=== PATIENT | female | born 1955 | race Caucasian/White ===

== ENCOUNTER → 2017-06-20 09:48 | Outpatient (CLI) | payer OTHER, SELFPAY ==
[2017-06-20 11:54] LABS: Alanine Aminotransferase 47 U/L (12-78); Albumin Level 3.8 gm/dL (3.4-5.0); Albumin/Globulin Ratio 1.2 (1.1-1.8); Alkaline Phosphatase 73 U/L (46-116); Anion Gap 11.4 mEq/L (5-15); Aspartate Amino Transferase 25 U/L (15-37); Bilirubin,Total 0.4 mg/dL (0.2-1.0); Blood Urea Nitrogen 26 mg/dL (7-18); Calcium 9.2 mg/dL (8.5-10.1); Carbon Dioxide 29 mmol/L (21.0-32.0); Chloride 107 mmol/L (98-107); Creatinine,Serum 0.59 mg/dL (0.55-1.02); Estimated Glomerular Filt Rate 104 ml/min (>60); GFR (African American) 126 ML/MIN (>60); Globulin 3.3 gm/dl (1.3-3.2); Glucose 85 mg/dL (74-106); Potassium 4.4 mmoL/L (3.5-5.1); Sodium 143 mmol/L (136-145); Total Protein,Serum 7.1 gm/dL (6.4-8.2)
[2017-06-20 12:23] LABS: Basophils % 0.9 % (0.1-2.0); Eosinophils # 0.2 K/mm3 (0.0-0.4); Eosinophils % 4.2 % (0.1-12.0); Hematocrit 40.9 % (37.0-47.0); Hemoglobin 13.5 g/dL (12.2-16.2); Lymphocytes # 1.9 K/mm3 (0.7-4.5); Lymphocytes % 38.6 K/mm3 (10-50); Mean Corpuscular HGB Conc 33.1 g/dL (31.8-35.4); Mean Corpuscular Hemoglobin 30.6 pg (27.0-31.2); Mean Corpuscular Volume 92.4 fl (81-99); Mean Platelet Volume 9.6 fl (7.4-10.4); Monocytes # 0.4 K/mm3 (0.1-1.0); Monocytes % 8.1 % (1.7-9.3); Neutrophils # 2.3 K/mm3 (1.8-7.8); Neutrophils % 48.2 % (37.0-80.0); Platelet Count 196 K/mm3 (142-424); Red Blood Count 4.42 M/mm3 (4.20-5.40); Red Cell Distribution Width 13.9 % (11.5-17.5); White Blood Count 4.8 K/mm3 (4.8-10.8)
== END ==
PROVIDERS: PCP Internal Medicine Adolescent Medicine; Visit Provider Nurse Practitioner Acute Care
DX: K76.9 Liver disease, unspecified (principal); D89.9 Disorder involving the immune mechanism, unspecified; L40.50 Arthropathic psoriasis, unspecified; Z51.81 Encounter for therapeutic drug level monitoring; Z79.1 Long term (current) use of non-steroidal anti-inflammatories (NSAID)
CPT/HCPCS: 36415; 80053; 85025

== ENCOUNTER → 2017-07-05 08:49 | Outpatient (CLI) | payer OTHER, SELFPAY | PROVIDERS: Family Provider Internal Medicine Adolescent Medicine; PCP Internal Medicine Adolescent Medicine; Visit Provider Nurse Practitioner Acute Care | DX: D89.9 Disorder involving the immune mechanism, unspecified (principal); L40.50 Arthropathic psoriasis, unspecified; Z51.81 Encounter for therapeutic drug level monitoring; Z79.1 Long term (current) use of non-steroidal anti-inflammatories (NSAID) ==

== ENCOUNTER → 2017-07-06 07:13 | Outpatient (CLI) | payer OTHER, SELFPAY ==
--- NOTE | 2017-07-06 07:15 | MR_ITS ---
MR abdomen wo/w con CLINICAL INDICATION: ITS.REASON: LIVER LESION, HEPATIC DISEASE ORDERING PHYSICIAN: Vika Warner PATIENT AGE: 61 years COMPARISON: 12/19/2016 TECHNIQUE: Multiplanar multiecho pre and post enhanced images obtained per abdominal protocol similar to the previous exam FINDINGS: There remains a thin linear area of enhancement at the junction of the anterior and posterior segment of the right hepatic lobe. The area of enhancement is somewhat less apparent when compared to the previous exam. As mentioned previously, this may represent transient hepatic intensity difference possibly from previous branches of the portal vein thrombosis resulting in increased hepatic arterial flow. No suspicious space-occupying lesions are evident of the liver. There is a moderate amount of colonic feces. Spleen, kidneys, adrenal glands, and pancreas have an unremarkable appearance. IMPRESSION: 1. Persistent linear enhancement at the junction of the right left hepatic lobe for a slightly less apparent consistent with transient hepatic intensity difference possibly from previous occlusion of the branch of the portal vein 2. Otherwise negative MRI of the abdomen
== END ==
PROVIDERS: Family Provider Internal Medicine Adolescent Medicine; PCP Internal Medicine Adolescent Medicine; Visit Provider Nurse Practitioner Acute Care
DX: K76.9 Liver disease, unspecified (principal)
CPT/HCPCS: 74183; A9576

== ENCOUNTER → 2017-07-12 15:52 | Outpatient (CLI) | payer OTHER, SELFPAY ==
[2017-07-12 16:16] LABS: INR 0.97 (0.9-1.1); Prothrombin Time 10.5 seconds (9.4-11.8)
[2017-07-12 16:22] LABS: Alanine Aminotransferase 42 U/L (12-78); Albumin Level 4.1 gm/dL (3.4-5.0); Albumin/Globulin Ratio 1.2 (1.1-1.8); Alkaline Phosphatase 70 U/L (46-116); Anion Gap 8.9 mEq/L (5-15); Aspartate Amino Transferase 22 U/L (15-37); Bilirubin,Total 0.5 mg/dL (0.2-1.0); Blood Urea Nitrogen 27 mg/dL (7-18); Calcium 9.3 mg/dL (8.5-10.1); Carbon Dioxide 31 mmol/L (21.0-32.0); Chloride 103 mmol/L (98-107); Creatinine,Serum 0.73 mg/dL (0.55-1.02); Estimated Glomerular Filt Rate 81 ml/min (>60); GFR (African American) 98 ML/MIN (>60); Globulin 3.3 gm/dl (1.3-3.2); Glucose 83 mg/dL (74-106); Potassium 3.9 mmoL/L (3.5-5.1); Sodium 139 mmol/L (136-145); Total Protein,Serum 7.4 gm/dL (6.4-8.2)
[2017-07-12 18:08] LABS: Basophils % 0.6 % (0.1-2.0); Eosinophils # 0.3 K/mm3 (0.0-0.4); Eosinophils % 4.4 % (0.1-12.0); Hematocrit 43.2 % (37.0-47.0); Hemoglobin 13.9 g/dL (12.2-16.2); Lymphocytes # 2.2 K/mm3 (0.7-4.5); Lymphocytes % 39.6 K/mm3 (10-50); Mean Corpuscular HGB Conc 32.2 g/dL (31.8-35.4); Mean Corpuscular Hemoglobin 30.9 pg (27.0-31.2); Mean Corpuscular Volume 95.9 fl (81-99); Mean Platelet Volume 9.4 fl (7.4-10.4); Monocytes # 0.3 K/mm3 (0.1-1.0); Neutrophils # 2.8 K/mm3 (1.8-7.8); Neutrophils % 49.4 % (37.0-80.0); Platelet Count 212 K/mm3 (142-424); Red Cell Distribution Width 13.4 % (11.5-17.5); White Blood Count 5.6 K/mm3 (4.8-10.8)
== END ==
PROVIDERS: Visit Provider Nurse Practitioner Family
DX: K76.9 Liver disease, unspecified (principal)
CPT/HCPCS: 36415; 80053; 85025; 85610

== ENCOUNTER → 2017-08-06 07:54 | Outpatient (CLI) | payer OTHER, SELFPAY ==
[2017-08-06 08:52] LABS: Basophils % 0.7 % (0.1-2.0); Eosinophils # 0.2 K/mm3 (0.0-0.4); Eosinophils % 4.6 % (0.1-12.0); Hematocrit 42.5 % (37.0-47.0); Hemoglobin 13.8 g/dL (12.2-16.2); Lymphocytes # 1.8 K/mm3 (0.7-4.5); Lymphocytes % 46.4 K/mm3 (10-50); Mean Corpuscular HGB Conc 32.6 g/dL (31.8-35.4); Mean Corpuscular Hemoglobin 31.6 pg (27.0-31.2); Mean Corpuscular Volume 97.2 fl (81-99); Mean Platelet Volume 8.8 fl (7.4-10.4); Monocytes # 0.3 K/mm3 (0.1-1.0); Monocytes % 6.6 % (1.7-9.3); Neutrophils # 1.6 K/mm3 (1.8-7.8); Neutrophils % 41.7 % (37.0-80.0); Platelet Count 215 K/mm3 (142-424); Red Blood Count 4.38 M/mm3 (4.20-5.40); Red Cell Distribution Width 13.2 % (11.5-17.5); White Blood Count 3.9 K/mm3 (4.8-10.8)
[2017-08-06 08:56] LABS: Alanine Aminotransferase 35 U/L (12-78); Albumin Level 3.9 gm/dL (3.4-5.0); Albumin/Globulin Ratio 1.1 (1.1-1.8); Alkaline Phosphatase 71 U/L (46-116); Anion Gap 10.4 mEq/L (5-15); Aspartate Amino Transferase 23 U/L (15-37); Bilirubin,Total 0.5 mg/dL (0.2-1.0); Blood Urea Nitrogen 32 mg/dL (7-18); Calcium 9.1 mg/dL (8.5-10.1); Carbon Dioxide 30 mmol/L (21.0-32.0); Chloride 105 mmol/L (98-107); Creatinine,Serum 0.61 mg/dL (0.55-1.02); Estimated Glomerular Filt Rate 100 ml/min (>60); GFR (African American) 121 ML/MIN (>60); Globulin 3.4 gm/dl (1.3-3.2); Glucose 88 mg/dL (74-106); Potassium 4.4 mmoL/L (3.5-5.1); Sodium 141 mmol/L (136-145); Total Protein,Serum 7.3 gm/dL (6.4-8.2)
[2017-08-06 08:58] LABS: C-Reactive Protein < 0.2 mg/L (0.0-0.9)
[2017-08-06 10:01] LABS: Erythrocyte Sedimentation Rate 11 mm/hr (0-30)
[2017-08-07 08:24] LABS: Hep A Ab, IgM Negative (Negative); Hepatitis B Core Antibody IgM Negative (Negative); Hepatitis B Surface Antigen Negative (Negative)
[2017-08-07 15:40] LABS: Hepatitis C Antibody <0.1 s/co ratio (0.0-0.9)
== END ==
PROVIDERS: Visit Provider Internal Medicine
DX: D89.9 Disorder involving the immune mechanism, unspecified (principal); L40.50 Arthropathic psoriasis, unspecified; R53.83 Other fatigue; Z79.1 Long term (current) use of non-steroidal anti-inflammatories (NSAID); Z51.81 Encounter for therapeutic drug level monitoring
CPT/HCPCS: 36415; 80053; 80074; 85025; 85651; 86140; 86480

== ENCOUNTER 2017-09-20 08:30 | Outpatient (CLI) | payer OTHER, SELFPAY ==
[2017-09-20 09:04] VITALS: BMI 29.7
[2017-09-20 09:23] LABS: Basophils # 0.1 K/mm3 (0-0.2); Basophils % 0.9 % (0.1-2.0); Eosinophils # 0.3 K/mm3 (0.0-0.4); Eosinophils % 6.2 % (0.1-12.0); Hematocrit 40.7 % (37.0-47.0); Hemoglobin 13.7 g/dL (12.2-16.2); Mean Corpuscular HGB Conc 33.7 g/dL (31.8-35.4); Mean Corpuscular Hemoglobin 32.6 pg (27.0-31.2); Mean Corpuscular Volume 96.9 fl (81-99); Mean Platelet Volume 8.2 fl (7.4-10.4); Monocytes # 0.4 K/mm3 (0.1-1.0); Monocytes % 6.8 % (1.7-9.3); Neutrophils # 2.5 K/mm3 (1.8-7.8); Neutrophils % 48.2 % (37.0-80.0); Platelet Count 227 K/mm3 (142-424); Red Cell Distribution Width 13.1 % (11.5-17.5); White Blood Count 5.2 K/mm3 (4.8-10.8)
[2017-09-20 10:45] VITALS: BP 131/86; PULSE 61; RESP 18; TEMP 36.2; O2SAT 99
[2017-09-20 11:00] VITALS: BP 143/91; PULSE 60; RESP 18
[2017-09-20 11:15] VITALS: BP 129/92; PULSE 63; RESP 18
[2017-09-20 11:30] VITALS: BP 149/88; PULSE 61; RESP 18
[2017-09-20 11:35] VITALS: BP 149/88; PULSE 61; RESP 18
== END 2017-09-20 11:35 | disposition home or self-care (01) ==
LOC: INF 08:46
PROVIDERS: Family Provider Internal Medicine Adolescent Medicine; PCP Internal Medicine Adolescent Medicine; Visit Provider Internal Medicine
DX: L40.50 Arthropathic psoriasis, unspecified (principal); D89.9 Disorder involving the immune mechanism, unspecified; Z79.01 Long term (current) use of anticoagulants; Z51.81 Encounter for therapeutic drug level monitoring
CPT/HCPCS: 85025; 86580; 96413; J1602

== ENCOUNTER 2017-10-18 08:35 | Outpatient (CLI) | payer OTHER, SELFPAY ==
[2017-10-18 08:52] VITALS: BMI 29.4
[2017-10-18 09:26] LABS: Eosinophils # 0.3 K/mm3 (0.0-0.4); Eosinophils % 7.5 % (0.1-12.0); Hematocrit 41.1 % (37.0-47.0); Hemoglobin 13.1 g/dL (12.2-16.2); Lymphocytes # 1.8 K/mm3 (0.7-4.5); Lymphocytes % 40.3 K/mm3 (10-50); Mean Corpuscular HGB Conc 31.9 g/dL (31.8-35.4); Mean Corpuscular Hemoglobin 31.5 pg (27.0-31.2); Mean Corpuscular Volume 98.8 fl (81-99); Monocytes # 0.3 K/mm3 (0.1-1.0); Monocytes % 6.1 % (1.7-9.3); Neutrophils % 45.1 % (37.0-80.0); Platelet Count 216 K/mm3 (142-424); Red Blood Count 4.16 M/mm3 (4.20-5.40); Red Cell Distribution Width 13.1 % (11.5-17.5); White Blood Count 4.4 K/mm3 (4.8-10.8)
[2017-10-18 10:23] VITALS: BP 149/76; PULSE 63; RESP 18; TEMP 36.5; O2SAT 97
[2017-10-18 10:53] VITALS: BP 144/77; PULSE 68; RESP 18; O2SAT 96
[2017-10-18 11:05] VITALS: BP 141/71; PULSE 67; RESP 18; O2SAT 97
== END 2017-10-18 11:10 | disposition home or self-care (01) ==
LOC: INF 08:46
PROVIDERS: Family Provider Internal Medicine Adolescent Medicine; PCP Internal Medicine Adolescent Medicine; Visit Provider Internal Medicine
DX: D89.9 Disorder involving the immune mechanism, unspecified (principal); L40.50 Arthropathic psoriasis, unspecified; Z51.81 Encounter for therapeutic drug level monitoring; Z79.1 Long term (current) use of non-steroidal anti-inflammatories (NSAID)
CPT/HCPCS: 85025; 96413; J1602

== ENCOUNTER 2017-12-13 09:08 | Outpatient (CLI) | payer OTHER, SELFPAY ==
[2017-12-13 09:05] VITALS: BMI 29.4
[2017-12-13 09:33] LABS: Basophils % 0.7 % (0.1-2.0); Eosinophils # 0.2 K/mm3 (0.0-0.4); Eosinophils % 5.1 % (0.1-12.0); Hematocrit 39.5 % (37.0-47.0); Hemoglobin 12.9 g/dL (12.2-16.2); Lymphocytes # 1.7 K/mm3 (0.7-4.5); Lymphocytes % 35.1 K/mm3 (10-50); Mean Corpuscular HGB Conc 32.6 g/dL (31.8-35.4); Mean Corpuscular Hemoglobin 31.8 pg (27.0-31.2); Mean Corpuscular Volume 97.5 fl (81-99); Mean Platelet Volume 7.7 fl (7.4-10.4); Monocytes # 0.3 K/mm3 (0.1-1.0); Monocytes % 6.9 % (1.7-9.3); Neutrophils # 2.5 K/mm3 (1.8-7.8); Neutrophils % 52.3 % (37.0-80.0); Platelet Count 198 K/mm3 (142-424); Red Blood Count 4.05 M/mm3 (4.20-5.40); Red Cell Distribution Width 13.1 % (11.5-17.5); White Blood Count 4.8 K/mm3 (4.8-10.8)
[2017-12-13 10:00] VITALS: BP 131/69; PULSE 71; RESP 18; TEMP 36.6; O2SAT 98
[2017-12-13 10:30] VITALS: BP 140/70; PULSE 78; RESP 18; O2SAT 97
[2017-12-13 10:45] VITALS: BP 145/72; PULSE 76; RESP 18; O2SAT 97
== END 2017-12-13 10:50 | disposition home or self-care (01) ==
LOC: INF 09:08
PROVIDERS: Family Provider Internal Medicine Adolescent Medicine; PCP Internal Medicine Adolescent Medicine; Visit Provider Internal Medicine
DX: D89.9 Disorder involving the immune mechanism, unspecified (principal); L40.50 Arthropathic psoriasis, unspecified; Z79.1 Long term (current) use of non-steroidal anti-inflammatories (NSAID); Z51.81 Encounter for therapeutic drug level monitoring
CPT/HCPCS: 85025; 96413; J1602

== ENCOUNTER → 2018-02-05 08:36 | Outpatient (CLI) | payer OTHER, SELFPAY ==
[2018-02-05 09:22] LABS: Basophils % 0.7 % (0.1-2.0); Eosinophils # 0.2 K/mm3 (0.0-0.4); Eosinophils % 3.9 % (0.1-12.0); Hematocrit 41.2 % (37.0-47.0); Hemoglobin 13.3 g/dL (12.2-16.2); Lymphocytes # 1.9 K/mm3 (0.7-4.5); Lymphocytes % 41.4 K/mm3 (10-50); Mean Corpuscular HGB Conc 32.2 g/dL (31.8-35.4); Mean Corpuscular Hemoglobin 31.5 pg (27.0-31.2); Mean Corpuscular Volume 97.8 fl (81-99); Mean Platelet Volume 7.4 fl (7.4-10.4); Monocytes # 0.3 K/mm3 (0.1-1.0); Monocytes % 7.3 % (1.7-9.3); Neutrophils # 2.2 K/mm3 (1.8-7.8); Neutrophils % 46.7 % (37.0-80.0); Platelet Count 218 K/mm3 (142-424); Red Blood Count 4.22 M/mm3 (4.20-5.40); Red Cell Distribution Width 13.2 % (11.5-17.5); White Blood Count 4.7 K/mm3 (4.8-10.8)
[2018-02-05 10:18] LABS: Alanine Aminotransferase 31 U/L (12-78); Albumin Level 3.7 gm/dL (3.4-5.0); Albumin/Globulin Ratio 1.3 (1.1-1.8); Alkaline Phosphatase 78 U/L (46-116); Anion Gap 10.3 mEq/L (5-15); Aspartate Amino Transferase 16 U/L (15-37); Bilirubin,Total 0.4 mg/dL (0.2-1.0); Blood Urea Nitrogen 25 mg/dL (7-18); Calcium 8.9 mg/dL (8.5-10.1); Carbon Dioxide 31 mmol/L (21.0-32.0); Chloride 107 mmol/L (98-107); Creatinine,Serum 0.59 mg/dL (0.55-1.02); Estimated Glomerular Filt Rate 104 ml/min (>60); GFR (African American) 125 ML/MIN (>60); Globulin 2.9 gm/dl (1.3-3.2); Glucose 78 mg/dL (74-106); Potassium 4.3 mmoL/L (3.5-5.1); Sodium 144 mmol/L (136-145); Total Protein,Serum 6.6 gm/dL (6.4-8.2)
[2018-02-05 10:26] LABS: C-Reactive Protein < 0.2 mg/L (0.0-0.9)
[2018-02-05 11:17] LABS: Erythrocyte Sedimentation Rate 9 mm/hr (0-30)
== END ==
PROVIDERS: PCP Internal Medicine Adolescent Medicine; Visit Provider Internal Medicine
DX: Z51.81 Encounter for therapeutic drug level monitoring (principal); Z79.1 Long term (current) use of non-steroidal anti-inflammatories (NSAID); D89.9 Disorder involving the immune mechanism, unspecified; L40.50 Arthropathic psoriasis, unspecified
CPT/HCPCS: 36415; 80053; 85025; 85651; 86140

== ENCOUNTER 2018-02-07 09:14 | Outpatient (CLI) | payer OTHER, SELFPAY ==
[2018-02-07 09:26] VITALS: BMI 29.4
[2018-02-07 09:54] LABS: Basophils % 0.7 % (0.1-2.0); Eosinophils # 0.2 K/mm3 (0.0-0.4); Eosinophils % 5.3 % (0.1-12.0); Hemoglobin 12.9 g/dL (12.2-16.2); Lymphocytes % 43.6 K/mm3 (10-50); Mean Corpuscular HGB Conc 32.3 g/dL (31.8-35.4); Mean Corpuscular Hemoglobin 31.5 pg (27.0-31.2); Mean Corpuscular Volume 97.2 fl (81-99); Mean Platelet Volume 7.2 fl (7.4-10.4); Monocytes # 0.4 K/mm3 (0.1-1.0); Monocytes % 8.3 % (1.7-9.3); Neutrophils # 1.9 K/mm3 (1.8-7.8); Neutrophils % 42.2 % (37.0-80.0); Platelet Count 228 K/mm3 (142-424); Red Blood Count 4.12 M/mm3 (4.20-5.40); Red Cell Distribution Width 13.2 % (11.5-17.5); White Blood Count 4.6 K/mm3 (4.8-10.8)
[2018-02-07 10:15] VITALS: BP 159/91; PULSE 78; RESP 18; TEMP 36.6; O2SAT 98
[2018-02-07 10:40] VITALS: BP 132/80; PULSE 64; RESP 18; TEMP 36.6; O2SAT 98
[2018-02-07 11:30] VITALS: BP 139/76; PULSE 60; RESP 18; TEMP 36.7; O2SAT 97
== END 2018-02-07 11:30 | disposition home or self-care (01) ==
LOC: INF 09:14
PROVIDERS: Family Provider Internal Medicine Adolescent Medicine; PCP Internal Medicine Adolescent Medicine; Visit Provider Internal Medicine
DX: D89.9 Disorder involving the immune mechanism, unspecified (principal); L40.50 Arthropathic psoriasis, unspecified; Z51.81 Encounter for therapeutic drug level monitoring; Z79.1 Long term (current) use of non-steroidal anti-inflammatories (NSAID)
CPT/HCPCS: 85025; 96365; J1602

== ENCOUNTER 2018-04-02 09:06 | Outpatient (CLI) | payer OTHER, SELFPAY ==
[2018-04-02 09:06] VITALS: BMI 29.4
[2018-04-02 09:34] LABS: Eosinophils # 0.2 K/mm3 (0.0-0.4); Eosinophils % 3.6 % (0.1-12.0); Hematocrit 40.5 % (37.0-47.0); Hemoglobin 13.1 g/dL (12.2-16.2); Lymphocytes # 1.8 K/mm3 (0.7-4.5); Lymphocytes % 41.5 % (10-50); Mean Corpuscular HGB Conc 32.5 g/dL (31.8-35.4); Mean Corpuscular Hemoglobin 31.6 pg (27.0-31.2); Mean Corpuscular Volume 97.2 fl (81-99); Mean Platelet Volume 7.3 fl (7.4-10.4); Monocytes # 0.4 K/mm3 (0.1-1.0); Monocytes % 8.5 % (1.7-9.3); Neutrophils # 1.9 K/mm3 (1.8-7.8); Neutrophils % 45.3 % (37.0-80.0); Platelet Count 219 K/mm3 (142-424); Red Blood Count 4.16 M/mm3 (4.20-5.40); Red Cell Distribution Width 13.5 % (11.5-17.5); White Blood Count 4.2 K/mm3 (4.8-10.8)
[2018-04-02 10:05] VITALS: BP 148/92; PULSE 61; RESP 20; TEMP 36.9; O2SAT 96
[2018-04-02 10:35] VITALS: BP 168/82; PULSE 68; RESP 20; TEMP 36.9; O2SAT 95
[2018-04-02 11:00] VITALS: BP 162/84; PULSE 62; RESP 20; TEMP 37.1; O2SAT 95
== END 2018-04-02 11:00 | disposition home or self-care (01) ==
LOC: INF 09:06
PROVIDERS: Visit Provider Internal Medicine
DX: L40.50 Arthropathic psoriasis, unspecified (principal); D89.9 Disorder involving the immune mechanism, unspecified; Z51.81 Encounter for therapeutic drug level monitoring; Z79.1 Long term (current) use of non-steroidal anti-inflammatories (NSAID)
CPT/HCPCS: 85025; 96413; J1602

== ENCOUNTER 2018-05-28 08:35 | Outpatient (CLI) | payer OTHER, SELFPAY ==
[2018-05-28 08:52] VITALS: BMI 33.6
[2018-05-28 09:01] LABS: Basophils # 0.1 K/mm3 (0-0.2); Eosinophils # 0.2 K/mm3 (0.0-0.4); Eosinophils % 3.9 % (0.1-12.0); Hematocrit 40.3 % (37.0-47.0); Hemoglobin 13.1 g/dL (12.2-16.2); Lymphocytes # 2.1 K/mm3 (0.7-4.5); Lymphocytes % 41.7 % (10-50); Mean Corpuscular HGB Conc 32.5 g/dL (31.8-35.4); Mean Corpuscular Hemoglobin 31.6 pg (27.0-31.2); Mean Corpuscular Volume 97.2 fl (81-99); Mean Platelet Volume 7.5 fl (7.4-10.4); Monocytes # 0.3 K/mm3 (0.1-1.0); Monocytes % 6.6 % (1.7-9.3); Neutrophils # 2.3 K/mm3 (1.8-7.8); Neutrophils % 46.9 % (37.0-80.0); Platelet Count 253 K/mm3 (142-424); Red Blood Count 4.15 M/mm3 (4.20-5.40); Red Cell Distribution Width 13.8 % (11.5-17.5)
[2018-05-28 09:31] VITALS: BP 158/82; PULSE 68; RESP 18; TEMP 36.4; O2SAT 95
[2018-05-28 10:01] VITALS: BP 155/81; PULSE 67; RESP 18; O2SAT 96
[2018-05-28 10:20] VITALS: BP 148/79; PULSE 69; RESP 18; O2SAT 97
== END 2018-05-28 10:30 | disposition home or self-care (01) ==
LOC: INF 08:35
PROVIDERS: Visit Provider Internal Medicine
DX: D89.9 Disorder involving the immune mechanism, unspecified (principal); L40.50 Arthropathic psoriasis, unspecified; Z51.81 Encounter for therapeutic drug level monitoring; Z79.1 Long term (current) use of non-steroidal anti-inflammatories (NSAID)
CPT/HCPCS: 85025; 96413; J1602

== ENCOUNTER → 2018-06-10 22:44 | Outpatient (CLI) | payer OTHER, SELFPAY ==
[2018-06-10 23:11] LABS: Basophils % 0.6 % (0.1-2.0); Eosinophils # 0.2 K/mm3 (0.0-0.4); Eosinophils % 3.9 % (0.1-12.0); Hematocrit 40.8 % (37.0-47.0); Hemoglobin 13.2 g/dL (12.2-16.2); Lymphocytes # 2.5 K/mm3 (0.7-4.5); Lymphocytes % 44.4 % (10-50); Mean Corpuscular HGB Conc 32.4 g/dL (31.8-35.4); Mean Corpuscular Hemoglobin 31.9 pg (27.0-31.2); Mean Corpuscular Volume 98.4 fl (81-99); Mean Platelet Volume 7.2 fl (7.4-10.4); Monocytes # 0.4 K/mm3 (0.1-1.0); Monocytes % 6.6 % (1.7-9.3); Neutrophils # 2.5 K/mm3 (1.8-7.8); Neutrophils % 44.4 % (37.0-80.0); Platelet Count 225 K/mm3 (142-424); Red Blood Count 4.15 M/mm3 (4.20-5.40); White Blood Count 5.7 K/mm3 (4.8-10.8)
[2018-06-10 23:16] LABS: Alanine Aminotransferase 39 U/L (12-78); Albumin Level 3.8 gm/dL (3.4-5.0); Albumin/Globulin Ratio 1.2 (1.1-1.8); Alkaline Phosphatase 98 U/L (46-116); Anion Gap 12.1 mEq/L (5-15); Aspartate Amino Transferase 20 U/L (15-37); Bilirubin,Total 0.3 mg/dL (0.2-1.0); Blood Urea Nitrogen 34 mg/dL (7-18); Calcium 8.8 mg/dL (8.5-10.1); Carbon Dioxide 28 mmol/L (21.0-32.0); Chloride 104 mmol/L (98-107); Creatinine,Serum 0.79 mg/dL (0.55-1.02); Estimated Glomerular Filt Rate 74 ml/min (>60); GFR (African American) 90 ML/MIN (>60); Globulin 3.3 gm/dl (1.3-3.2); Glucose 93 mg/dL (74-106); Potassium 4.1 mmoL/L (3.5-5.1); Sodium 140 mmol/L (136-145); Total Protein,Serum 7.1 gm/dL (6.4-8.2)
[2018-06-10 23:23] LABS: C-Reactive Protein < 0.2 mg/L (0.0-0.9)
[2018-06-10 23:55] LABS: Erythrocyte Sedimentation Rate 8 mm/hr (0-30)
[2018-06-12 08:44] LABS: Vitamin D 25 Hydroxy 20.7 ng/mL (30.0-100.0)
[2018-06-13 06:13] LABS: Vitamin B12 994 pg/mL (232-1245)
== END ==
PROVIDERS: Internal Medicine; Visit Provider Nurse Practitioner Family
DX: L40.50 Arthropathic psoriasis, unspecified (principal); R53.81 Other malaise; D89.9 Disorder involving the immune mechanism, unspecified; Z51.81 Encounter for therapeutic drug level monitoring; Z79.01 Long term (current) use of anticoagulants
CPT/HCPCS: 36415; 80053; 82607; 82652; 85025; 85651; 86140

== ENCOUNTER 2018-07-23 08:34 | Outpatient (CLI) | payer OTHER, SELFPAY ==
[2018-07-23 08:41] VITALS: BMI 31.3
[2018-07-23 09:04] LABS: Basophils % 0.6 % (0.1-2.0); Eosinophils # 0.1 K/mm3 (0.0-0.4); Eosinophils % 2.8 % (0.1-12.0); Hematocrit 40.4 % (37.0-47.0); Hemoglobin 13.3 g/dL (12.2-16.2); Lymphocytes # 1.7 K/mm3 (0.7-4.5); Lymphocytes % 36.8 % (10-50); Mean Corpuscular HGB Conc 32.9 g/dL (31.8-35.4); Mean Corpuscular Hemoglobin 31.8 pg (27.0-31.2); Mean Corpuscular Volume 96.6 fl (81-99); Mean Platelet Volume 7.8 fl (7.4-10.4); Monocytes # 0.5 K/mm3 (0.1-1.0); Monocytes % 9.6 % (1.7-9.3); Neutrophils # 2.4 K/mm3 (1.8-7.8); Neutrophils % 50.2 % (37.0-80.0); Platelet Count 248 K/mm3 (142-424); Red Blood Count 4.18 M/mm3 (4.20-5.40); Red Cell Distribution Width 13.6 % (11.5-17.5); White Blood Count 4.7 K/mm3 (4.8-10.8)
[2018-07-23 09:53] VITALS: BP 130/76; PULSE 69; RESP 18; TEMP 36.6; O2SAT 94
[2018-07-23 10:08] VITALS: BP 118/75; PULSE 67; RESP 18
[2018-07-23 10:23] VITALS: BP 107/81; PULSE 67; RESP 18
[2018-07-23 10:37] VITALS: BP 130/72; PULSE 67; RESP 18
== END 2018-07-23 10:40 | disposition home or self-care (01) ==
LOC: INF 08:34
PROVIDERS: Visit Provider Internal Medicine
DX: D89.9 Disorder involving the immune mechanism, unspecified (principal); L40.50 Arthropathic psoriasis, unspecified; Z51.81 Encounter for therapeutic drug level monitoring; Z79.01 Long term (current) use of anticoagulants
CPT/HCPCS: 85025; 96413; J1602

== ENCOUNTER 2018-09-20 09:03 | Outpatient (CLI) | payer OTHER, SELFPAY ==
[2018-09-20 09:32] VITALS: BMI 36.5
[2018-09-20 09:49] LABS: Eosinophils # 0.2 K/mm3 (0.0-0.4); Eosinophils % 4.5 % (0.1-12.0); Hemoglobin 13.6 g/dL (12.2-16.2); Lymphocytes # 1.5 K/mm3 (0.7-4.5); Lymphocytes % 42.5 % (10-50); Mean Corpuscular HGB Conc 34.1 g/dL (31.8-35.4); Mean Corpuscular Hemoglobin 31.7 pg (27.0-31.2); Mean Corpuscular Volume 93.1 fl (81-99); Mean Platelet Volume 7.8 fl (7.4-10.4); Monocytes # 0.3 K/mm3 (0.1-1.0); Monocytes % 9.7 % (1.7-9.3); Neutrophils # 1.5 K/mm3 (1.8-7.8); Neutrophils % 42.3 % (37.0-80.0); Platelet Count 229 K/mm3 (142-424); Red Blood Count 4.29 M/mm3 (4.20-5.40); Red Cell Distribution Width 13.1 % (11.5-17.5); White Blood Count 3.4 K/mm3 (4.8-10.8)
[2018-09-20 10:24] VITALS: BP 129/78; PULSE 68; RESP 18; TEMP 36.6; O2SAT 98
[2018-09-20 10:49] VITALS: BP 132/79; PULSE 72; RESP 18; TEMP 36.6; O2SAT 97
[2018-09-20 11:20] VITALS: BP 124/78; PULSE 72; RESP 18; TEMP 36.7; O2SAT 98
== END 2018-09-20 11:20 | disposition home or self-care (01) ==
LOC: INF 09:03
PROVIDERS: Visit Provider Internal Medicine
DX: L40.50 Arthropathic psoriasis, unspecified (principal)
CPT/HCPCS: 85025; 96413; J1602

== ENCOUNTER → 2018-10-15 08:33 | Outpatient (CLI) | payer OTHER, SELFPAY ==
[2018-10-15 09:06] LABS: Basophils # 0.1 K/mm3 (0-0.2); Eosinophils # 0.2 K/mm3 (0.0-0.4); Eosinophils % 5.1 % (0.1-12.0); Hematocrit 40.5 % (37.0-47.0); Hemoglobin 12.5 g/dL (12.2-16.2); Lymphocytes # 2.2 K/mm3 (0.7-4.5); Lymphocytes % 46.3 % (10-50); Mean Corpuscular HGB Conc 30.9 g/dL (31.8-35.4); Mean Corpuscular Volume 93.9 fl (81-99); Mean Platelet Volume 7.8 fl (7.4-10.4); Monocytes # 0.4 K/mm3 (0.1-1.0); Monocytes % 7.4 % (1.7-9.3); Neutrophils # 1.9 K/mm3 (1.8-7.8); Neutrophils % 40.1 % (37.0-80.0); Platelet Count 234 K/mm3 (142-424); Red Blood Count 4.31 M/mm3 (4.20-5.40); Red Cell Distribution Width 13.4 % (11.5-17.5); White Blood Count 4.8 K/mm3 (4.8-10.8)
[2018-10-15 11:10] LABS: Erythrocyte Sedimentation Rate 37 mm/hr (0-30)
[2018-10-15 12:20] LABS: Alanine Aminotransferase 34 U/L (12-78); Albumin Level 3.5 gm/dL (3.4-5.0); Albumin/Globulin Ratio 1.3 (1.1-1.8); Alkaline Phosphatase 69 U/L (46-116); Anion Gap 12.4 mEq/L (5-15); Aspartate Amino Transferase 18 U/L (15-37); Bilirubin,Total 0.4 mg/dL (0.2-1.0); Blood Urea Nitrogen 22 mg/dL (7-18); Calcium 8.8 mg/dL (8.5-10.1); Carbon Dioxide 29 mmol/L (21.0-32.0); Chloride 107 mmol/L (98-107); Creatinine,Serum 0.71 mg/dL (0.55-1.02); Estimated Glomerular Filt Rate 84 ml/min (>60); GFR (African American) 101 ML/MIN (>60); Globulin 2.8 gm/dl (1.3-3.2); Glucose 94 mg/dL (74-106); Potassium 4.4 mmoL/L (3.5-5.1); Sodium 144 mmol/L (136-145); Total Protein,Serum 6.3 gm/dL (6.4-8.2)
[2018-10-15 12:24] LABS: C-Reactive Protein < 0.2 mg/L (0.0-0.9)
== END ==
PROVIDERS: Internal Medicine; Visit Provider Internal Medicine Adolescent Medicine
DX: I10 Essential (primary) hypertension (principal)
CPT/HCPCS: 36415; 80053; 85025; 85651; 86140

== ENCOUNTER → 2018-11-12 10:44 | Outpatient (CLI) | payer OTHER, SELFPAY ==
[2018-11-12 11:20] LABS: Basophils % 0.3 % (0.1-2.0); Eosinophils % 0.3 % (0.1-12.0); Hematocrit 46.5 % (37.0-47.0); Hemoglobin 14.1 g/dL (12.2-16.2); Lymphocytes # 1.7 K/mm3 (0.7-4.5); Lymphocytes % 13.3 % (10-50); Mean Corpuscular HGB Conc 30.4 g/dL (31.8-35.4); Mean Corpuscular Hemoglobin 30.4 pg (27.0-31.2); Mean Corpuscular Volume 100.1 fl (81-99); Mean Platelet Volume 7.7 fl (7.4-10.4); Monocytes # 0.4 K/mm3 (0.1-1.0); Neutrophils # 10.8 K/mm3 (1.8-7.8); Neutrophils % 83.1 % (37.0-80.0); Platelet Count 317 K/mm3 (142-424); Red Blood Count 4.65 M/mm3 (4.20-5.40); Red Cell Distribution Width 13.6 % (11.5-17.5)
[2018-11-12 12:32] LABS: Alanine Aminotransferase 31 U/L (12-78); Albumin Level 3.8 gm/dL (3.4-5.0); Albumin/Globulin Ratio 1.1 (1.1-1.8); Alkaline Phosphatase 77 U/L (46-116); Anion Gap 13.6 mEq/L (5-15); Aspartate Amino Transferase 15 U/L (15-37); Bilirubin,Total 0.4 mg/dL (0.2-1.0); Blood Urea Nitrogen 24 mg/dL (7-18); Calcium 9.3 mg/dL (8.5-10.1); Carbon Dioxide 30 mmol/L (21.0-32.0); Chloride 102 mmol/L (98-107); Creatinine,Serum 0.78 mg/dL (0.55-1.02); Estimated Glomerular Filt Rate 75 ml/min (>60); GFR (African American) 91 ML/MIN (>60); Globulin 3.4 gm/dl (1.3-3.2); Glucose 120 mg/dL (74-106); Potassium 4.6 mmoL/L (3.5-5.1); Sodium 141 mmol/L (136-145); Total Protein,Serum 7.2 gm/dL (6.4-8.2)
== END ==
PROVIDERS: Visit Provider Internal Medicine
DX: D89.9 Disorder involving the immune mechanism, unspecified (principal); L40.50 Arthropathic psoriasis, unspecified; Z51.81 Encounter for therapeutic drug level monitoring; Z79.1 Long term (current) use of non-steroidal anti-inflammatories (NSAID)
CPT/HCPCS: 36415; 80053; 85025

== ENCOUNTER 2018-11-18 09:04 | Outpatient (CLI) | payer OTHER, SELFPAY ==
[2018-11-18 09:07] VITALS: BMI 36.5
[2018-11-18 09:36] LABS: Basophils # 0.1 K/mm3 (0-0.2); Basophils % 0.6 % (0.1-2.0); Eosinophils # 0.2 K/mm3 (0.0-0.4); Hematocrit 42.2 % (37.0-47.0); Hemoglobin 12.9 g/dL (12.2-16.2); Lymphocytes # 2.2 K/mm3 (0.7-4.5); Lymphocytes % 24.7 % (10-50); Mean Corpuscular HGB Conc 30.5 g/dL (31.8-35.4); Mean Corpuscular Hemoglobin 29.1 pg (27.0-31.2); Mean Corpuscular Volume 95.3 fl (81-99); Mean Platelet Volume 7.4 fl (7.4-10.4); Monocytes # 0.6 K/mm3 (0.1-1.0); Monocytes % 7.1 % (1.7-9.3); Neutrophils # 5.7 K/mm3 (1.8-7.8); Neutrophils % 65.6 % (37.0-80.0); Platelet Count 297 K/mm3 (142-424); Red Blood Count 4.43 M/mm3 (4.20-5.40); Red Cell Distribution Width 13.6 % (11.5-17.5); White Blood Count 8.7 K/mm3 (4.8-10.8)
[2018-11-18 10:10] VITALS: BP 130/79; PULSE 70; RESP 18; TEMP 36.2; O2SAT 99
[2018-11-18 10:43] VITALS: BP 149/76; PULSE 65; RESP 20; O2SAT 99
== END 2018-11-18 10:53 | disposition home or self-care (01) ==
LOC: INF 09:04
PROVIDERS: Visit Provider Internal Medicine
DX: L40.50 Arthropathic psoriasis, unspecified (principal); D89.9 Disorder involving the immune mechanism, unspecified; Z51.81 Encounter for therapeutic drug level monitoring; Z79.1 Long term (current) use of non-steroidal anti-inflammatories (NSAID)
CPT/HCPCS: 85025; 96413; J1602

== ENCOUNTER 2019-01-13 08:59 | Outpatient (CLI) | payer OTHER, SELFPAY ==
[2019-01-13 08:59] VITALS: BMI 38.0
[2019-01-13 09:23] LABS: Basophils % 0.9 % (0.1-2.0); Eosinophils # 0.2 K/mm3 (0.0-0.4); Eosinophils % 3.9 % (0.1-12.0); Hematocrit 41.4 % (37.0-47.0); Hemoglobin 13.7 g/dL (12.2-16.2); Lymphocytes # 1.6 K/mm3 (0.7-4.5); Mean Corpuscular HGB Conc 33.2 g/dL (31.8-35.4); Mean Corpuscular Hemoglobin 31.4 pg (27.0-31.2); Mean Corpuscular Volume 94.6 fl (81-99); Mean Platelet Volume 7.3 fl (7.4-10.4); Monocytes # 0.4 K/mm3 (0.1-1.0); Monocytes % 7.8 % (1.7-9.3); Neutrophils # 2.5 K/mm3 (1.8-7.8); Neutrophils % 53.2 % (37.0-80.0); Platelet Count 257 K/mm3 (142-424); Red Blood Count 4.38 M/mm3 (4.20-5.40); Red Cell Distribution Width 13.5 % (11.5-17.5); White Blood Count 4.7 K/mm3 (4.8-10.8)
[2019-01-13 09:55] VITALS: BP 157/74; PULSE 69; RESP 18; O2SAT 98
[2019-01-13 10:15] VITALS: BP 143/76; PULSE 63; RESP 18; O2SAT 96
[2019-01-13 10:33] VITALS: BP 158/73; PULSE 62; RESP 18; O2SAT 95
[2019-01-13 10:45] VITALS: BP 159/75; PULSE 64; RESP 18; O2SAT 96
== END 2019-01-13 10:45 | disposition home or self-care (01) ==
LOC: INF 08:59
PROVIDERS: Visit Provider Internal Medicine
DX: D89.9 Disorder involving the immune mechanism, unspecified (principal); L40.50 Arthropathic psoriasis, unspecified; Z51.81 Encounter for therapeutic drug level monitoring; Z79.1 Long term (current) use of non-steroidal anti-inflammatories (NSAID)
CPT/HCPCS: 85025; 96413; J1602

== ENCOUNTER → 2019-02-21 15:29 | Outpatient (CLI) | payer OTHER, SELFPAY ==
[2019-02-21 16:03] LABS: Basophils # 0.1 K/mm3 (0-0.2); Basophils % 0.8 % (0.1-2.0); Eosinophils # 0.2 K/mm3 (0.0-0.4); Eosinophils % 3.6 % (0.1-12.0); Hematocrit 40.5 % (37.0-47.0); Hemoglobin 13.2 g/dL (12.2-16.2); Lymphocytes # 2.3 K/mm3 (0.7-4.5); Mean Corpuscular HGB Conc 32.5 g/dL (31.8-35.4); Mean Corpuscular Hemoglobin 31.3 pg (27.0-31.2); Mean Corpuscular Volume 96.1 fl (81-99); Mean Platelet Volume 8.2 fl (7.4-10.4); Monocytes # 0.3 K/mm3 (0.1-1.0); Monocytes % 5.8 % (1.7-9.3); Neutrophils % 50.7 % (37.0-80.0); Platelet Count 270 K/mm3 (142-424); Red Blood Count 4.22 M/mm3 (4.20-5.40); Red Cell Distribution Width 13.4 % (11.5-17.5); White Blood Count 5.9 K/mm3 (4.8-10.8)
[2019-02-21 17:14] LABS: Erythrocyte Sedimentation Rate 16 mm/hr (0-30)
[2019-02-21 17:27] LABS: Alanine Aminotransferase 22 U/L (12-78); Albumin Level 3.7 gm/dL (3.4-5.0); Albumin/Globulin Ratio 1.2 (1.1-1.8); Alkaline Phosphatase 75 U/L (46-116); Anion Gap 12.3 mEq/L (5-15); Aspartate Amino Transferase 14 U/L (15-37); Bilirubin,Total 0.3 mg/dL (0.2-1.0); Blood Urea Nitrogen 25 mg/dL (7-18); Calcium 9.3 mg/dL (8.5-10.1); Carbon Dioxide 30 mmol/L (21.0-32.0); Chloride 104 mmol/L (98-107); Creatinine,Serum 1.08 mg/dL (0.55-1.02); Estimated Glomerular Filt Rate 51 ml/min (>60); GFR (African American) 62 ML/MIN (>60); Glucose 96 mg/dL (74-106); Potassium 4.3 mmoL/L (3.5-5.1); Sodium 142 mmol/L (136-145); Total Protein,Serum 6.7 gm/dL (6.4-8.2)
[2019-02-21 17:29] LABS: C-Reactive Protein < 0.2 mg/dL (0.0-0.9)
== END ==
PROVIDERS: Visit Provider Internal Medicine
DX: D89.9 Disorder involving the immune mechanism, unspecified (principal); L40.50 Arthropathic psoriasis, unspecified; Z51.81 Encounter for therapeutic drug level monitoring; Z79.1 Long term (current) use of non-steroidal anti-inflammatories (NSAID)
CPT/HCPCS: 36415; 80053; 85025; 85651; 86140

== ENCOUNTER 2019-02-24 09:12 | Outpatient (CLI) | payer OTHER, SELFPAY ==
[2019-02-24 09:15] VITALS: BMI 37.5
[2019-02-24 10:02] LABS: Basophils # 0.1 K/mm3 (0-0.2); Basophils % 0.9 % (0.1-2.0); Eosinophils # 0.3 K/mm3 (0.0-0.4); Eosinophils % 4.2 % (0.1-12.0); Hematocrit 40.3 % (37.0-47.0); Hemoglobin 13.3 g/dL (12.2-16.2); Lymphocytes # 1.9 K/mm3 (0.7-4.5); Lymphocytes % 31.2 % (10-50); Mean Corpuscular HGB Conc 32.9 g/dL (31.8-35.4); Mean Corpuscular Hemoglobin 31.7 pg (27.0-31.2); Mean Corpuscular Volume 96.3 fl (81-99); Mean Platelet Volume 8.2 fl (7.4-10.4); Monocytes # 0.4 K/mm3 (0.1-1.0); Neutrophils # 3.4 K/mm3 (1.8-7.8); Neutrophils % 56.6 % (37.0-80.0); Platelet Count 246 K/mm3 (142-424); Red Blood Count 4.19 M/mm3 (4.20-5.40); Red Cell Distribution Width 13.3 % (11.5-17.5)
[2019-02-24 10:07] VITALS: BP 143/62; PULSE 72; RESP 18; TEMP 36.3; O2SAT 97
[2019-02-24 10:15] VITALS: BP 137/76; PULSE 61; RESP 20; TEMP 36.4; O2SAT 97
[2019-02-24 10:30] VITALS: BP 142/77; PULSE 60; RESP 18; TEMP 36.6; O2SAT 98
[2019-02-24 10:55] VITALS: BP 139/78; PULSE 64; RESP 18; TEMP 36.4; O2SAT 97
== END 2019-02-24 11:00 | disposition home or self-care (01) ==
LOC: INF 09:12
PROVIDERS: Visit Provider Internal Medicine
DX: D89.9 Disorder involving the immune mechanism, unspecified (principal); L40.50 Arthropathic psoriasis, unspecified; Z51.81 Encounter for therapeutic drug level monitoring; Z79.1 Long term (current) use of non-steroidal anti-inflammatories (NSAID)
CPT/HCPCS: 85025; 96365; J1602

== ENCOUNTER → 2019-03-21 07:47 | Outpatient (CLI) | payer OTHER, SELFPAY ==
--- NOTE | 2019-03-21 07:51 | MR_ITS ---
PROCEDURE: MR LUMBAR SPINE WO CON CLINICAL INDICATION: ACUTE RIGHT-SIDED BACK PAIN W/SCIATICA Low back pain which is worsening, right leg numbness COMPARISON: ABDPELW CT ABD PELVIS W/ CONTRAST from 05/13/2014 XR LUMBAR SPINE 2-3V from 03/07/2019 TECHNIQUE: Standard multiplanar multiecho sequences are performed without contrast. 3-D MIP and myelographic images are also rendered and reviewed FINDINGS: There is normal alignment. The spinal cord ends at the L2 level. T11-T12: Mild degenerative disc disease. T12-L1: Degenerative disc disease. L1-L2: Degenerate disc disease with minimal bulging disc. L2-L3: Degenerate disc disease with mild bulging disc along with facet and ligamentum hypertrophy with bilateral lateral recess narrowing and moderate bilateral foraminal narrowing. L3-L4: Degenerate disc disease with bulging disc with facet and ligamentum hypertrophy with bilateral lateral recess narrowing and moderate bilateral foraminal narrowing. L4-5: Degenerate disc disease with bulging disc along with severe facet and ligamentum hypertrophy with severe bilateral lateral recess narrowing and moderate to severe left-sided foraminal narrowing. Mild right foraminal narrowing. There is canal stenosis at this level. L5-S1: Facet and ligamentum hypertrophy with moderate right foraminal narrowing and moderate to severe left foraminal narrowing. No extruded herniated disc are evident IMPRESSION: 1. Multilevel lumbar spondylosis with degenerative disc disease, bulging disc, and facet and ligamentum hypertrophy with varying degrees of foraminal and lateral recess narrowing. Please see above for detailed description at each level 2. Degenerate disc disease at L2 and L3 and L3-L4 with mild bulging disc along with facet and ligamentum hypertrophy with bilateral lateral recess narrowing and moderate bilateral foraminal narrowing. 3. L4-5: Degenerate disc disease with bulging disc along with severe facet and ligamentum hypertrophy with severe bilateral lateral recess narrowing and moderate to severe left-sided foraminal narrowing. Mild right foraminal narrowing. There is canal stenosis at this level. 4. L5-S1: Facet and ligamentum hypertrophy with moderate right foraminal narrowing and moderate to severe left foraminal narrowing. 5. No extruded herniated disc apparent Dictated by: Tiago Duenas MD 03/22/2019 06:19 Electronically signed by Tiago Duenas MD in [place] 03/22/2019 06:19
== END ==
PROVIDERS: PCP Internal Medicine Adolescent Medicine; Visit Provider Internal Medicine Adolescent Medicine
DX: M54.41 Lumbago with sciatica, right side (principal)
CPT/HCPCS: 72148; 76376

== ENCOUNTER → 2019-04-14 09:10 | Outpatient (POV) | payer OTHER, SELFPAY ==
[2019-04-14 09:24] VITALS: BP 143/80; PULSE 89; RESP 18; O2SAT 99; BMI 41.1
--- NOTE | 2019-04-14 10:33 | HMH.PMCON ---
Assessment and Plan (1) Degenerative disc disease Current visit: Yes Status: Chronic Qualifiers: Spinal region: lumbar Qualified Code(s): M51.36 - Other intervertebral disc degeneration, lumbar region Category: Medical (2) Spinal stenosis, lumbar region with neurogenic claudication Current visit: Yes Status: Chronic Category: Medical Code(s): M48.062 - Spinal stenosis, lumbar region with neurogenic claudication (3) Low back pain Current visit: No Status: Chronic Qualifiers: Chronicity: acute Back pain laterality: right Sciatica presence: with sciatica Sciatica laterality: sciatica of right side Qualified Code(s): M54.41 - Lumbago with sciatica, right side Category: Medical Code(s): M54.5 - Low back pain (4) Radiculopathy of lumbar region Current visit: No Status: Chronic Category: Medical Code(s): M54.16 - Radiculopathy, lumbar region - Assessment and plan all Dx Assessment and Plan for all problems:: We will schedule an L4-L5 lumbar epidural steroid injection and an epidurogram for the patient to determine if she is a candidate for mild procedure. I will follow-up with the patient after this reassess her symptoms at that time. She is not on any anticoagulation therapy. She is continuing a home stretching program. Dr. Guardado has reviewed this note and agrees with this plan of care. This note was dictated using voice recognition software and may contain errors or omissions HPI - Data of Consult Consult date: 04/14/19 Requesting Physician: Angelia Mosquera APRN Primary Care Provider: Roger Maguire MD - Consult Narrative Reason for consult: Back pain History of present illness: Ms. Jensen is a 63 year old female who presents today for consultation in regards to her low back and leg pain. Patient's pain is worse when she standing or walking she is unable to walk for long periods of time without her leg giving out. She has a recent MRI showing ligamentum flavum hypertrophy and spinal stenosis. Patient may be a mild candidate. Patient had a long discussion in regards to spinal stenosis and the pain symptomology that goes along with this. She rates her pain today 5 out of 10. Patient is currently on an anti-inflammatory however it is not been successful for her pain control. Patient is continuing to try to work. She is had this pain for over 6 months. Patient is tried multiple medications and therapy with no success. She is continuing a home stretching program. She is not on any anticoagulation therapy. CC: Angelia Mosquera APRN [facility] History I have reviewed the patient's past medical history: Yes Medical History: Reports:: Hypertension Denies:: Cancer, Diabetes Mellitus Type 1, Diabetes Mellitus Type 2, MRSA *Have you ever received a pneumonia vaccine?: Yes *Have you received a flu vaccine this season?: Yes Other Medical History: Reports: Arthritis, Hypothyroidism, Sinus Problems, Other (psoriatic arthritis) Other Surgeries: Yes: Colonoscopy, Colon Resection (2014), ( x3), EGD, Hysterectomy-Total, Other (c section x 3, hysterectomy, bowel resection) Amputation: No Fractures: No - *Social History Smoking Status: Never smoker Alcohol Intake: never *Occupational Status:: other Housing: house Household Members: spouse, children *Travel in the last 8 weeks: None Family Hx:: Cancer, Coronary Artery Disease, Heart Attack, Hyperlipidemia, Hypertension, Stroke, Alcoholism, Mental illness Review of Systems - Review of Systems ROS General: no recent weight change, no fever, no sleep disturbances Respiratory: no cough, no shortness of air, no recurring pulmonary infections Cardiovascular/Peripheral Vascular: No chest pain, No palpitations, no edema, no shortness of breath. Gastrointestinal: no new onset incontinence, normal bowel movements reported Genitourinary: no new onset incontinence Musculoskeletal: Back pain, leg pain Psychiatri
--- NOTE | 2019-04-14 10:37 | P.CONS_ITS ---
Assessment and Plan (1) Degenerative disc disease Current visit: Yes Status: Chronic Qualifiers: Spinal region: lumbar Qualified Code(s): M51.36 - Other intervertebral disc degeneration, lumbar region Category: Medical (2) Spinal stenosis, lumbar region with neurogenic claudication Current visit: Yes Status: Chronic Category: Medical Code(s): M48.062 - Spinal stenosis, lumbar region with neurogenic claudication (3) Low back pain Current visit: No Status: Chronic Qualifiers: Chronicity: acute Back pain laterality: right Sciatica presence: with sciatica Sciatica laterality: sciatica of right side Qualified Code(s): M54.41 - Lumbago with sciatica, right side Category: Medical Code(s): M54.5 - Low back pain (4) Radiculopathy of lumbar region Current visit: No Status: Chronic Category: Medical Code(s): M54.16 - Radiculopathy, lumbar region - Assessment and plan all Dx Assessment and Plan for all problems:: We will schedule an L4-L5 lumbar epidural steroid injection and an epidurogram for the patient to determine if she is a candidate for mild procedure. I will follow-up with the patient after this reassess her symptoms at that time. She is not on any anticoagulation therapy. She is continuing a home stretching program. Dr. Guardado has reviewed this note and agrees with this plan of care. This note was dictated using voice recognition software and may contain errors or omissions HPI - Data of Consult Consult date: 04/14/19 Requesting Physician: Angelia Mosquera APRN Primary Care Provider: Roger Maguire MD - Consult Narrative Reason for consult: Back pain History of present illness: Ms. Jensen is a 63 year old female who presents today for consultation in regards to her low back and leg pain. Patient's pain is worse when she standing or walking she is unable to walk for long periods of time without her leg giving out. She has a recent MRI showing ligamentum flavum hypertrophy and spinal stenosis. Patient may be a mild candidate. Patient had a long discussion in regards to spinal stenosis and the pain symptomology that goes along with this. She rates her pain today 5 out of 10. Patient is currently on an anti- inflammatory however it is not been successful for her pain control. Patient is continuing to try to work. She is had this pain for over 6 months. Patient is tried multiple medications and therapy with no success. She is continuing a home stretching program. She is not on any anticoagulation therapy. CC: Angelia Mosquera APRN [facility] History I have reviewed the patient's past medical history: Yes Medical History: Reports:: Hypertension Denies:: Cancer, Diabetes Mellitus Type 1, Diabetes Mellitus Type 2, MRSA *Have you ever received a pneumonia vaccine?: Yes *Have you received a flu vaccine this season?: Yes Other Medical History: Reports: Arthritis, Hypothyroidism, Sinus Problems, Other (psoriatic arthritis) Other Surgeries: Yes: Colonoscopy, Colon Resection (2014), ( x3), EGD, Hysterectomy-Total, Other (c section x 3, hysterectomy, bowel resection) Amputation: No Fractures: No - *Social History Smoking Status: Never smoker Alcohol Intake: never *Occupational Status:: other Housing: house Household Members: spouse, children *Travel in the last 8 weeks: None Family Hx:: Cancer, Coronary Artery Disease, Heart Attack, Hyperlipidemia, Hypertension, Stroke, Alcoholism, Mental illness Review of Systems - Review of Systems ROS General: no recent weight change, no fever, no sleep disturban
== END ==
PROVIDERS: PCP Internal Medicine Adolescent Medicine; Visit Provider Clinical Nurse Specialist Family Health
DX: M51.16 Intervertebral disc disorders with radiculopathy, lumbar region (principal); M48.062 Spinal stenosis, lumbar region with neurogenic claudication
CPT/HCPCS: 99202

== ENCOUNTER 2019-04-21 09:04 | Outpatient (CLI) | payer OTHER, SELFPAY ==
[2019-04-21 09:09] VITALS: BMI 37.5
[2019-04-21 09:18] LABS: Basophils % 0.7 % (0.1-2.0); Eosinophils # 0.3 K/mm3 (0.0-0.4); Eosinophils % 4.4 % (0.1-12.0); Hematocrit 39.3 % (37.0-47.0); Hemoglobin 13.4 g/dL (12.2-16.2); Lymphocytes # 2.2 K/mm3 (0.7-4.5); Lymphocytes % 39.1 % (10-50); Mean Corpuscular Hemoglobin 31.8 pg (27.0-31.2); Mean Corpuscular Volume 93.6 fl (81-99); Mean Platelet Volume 7.6 fl (7.4-10.4); Monocytes # 0.4 K/mm3 (0.1-1.0); Monocytes % 7.3 % (1.7-9.3); Neutrophils # 2.7 K/mm3 (1.8-7.8); Neutrophils % 48.5 % (37.0-80.0); Platelet Count 270 K/mm3 (142-424); Red Cell Distribution Width 13.5 % (11.5-17.5); White Blood Count 5.6 K/mm3 (4.8-10.8)
[2019-04-21 09:52] VITALS: BP 112/64; PULSE 78; RESP 18; TEMP 36.1; O2SAT 99
[2019-04-21 10:20] VITALS: BP 116/75; PULSE 82; RESP 18; TEMP 36.4; O2SAT 98
[2019-04-21 10:45] VITALS: BP 120/69; PULSE 76; RESP 20; TEMP 36.4; O2SAT 98
[2019-04-21 11:00] VITALS: BP 119/65; PULSE 75; RESP 18; TEMP 36.4; O2SAT 99
== END 2019-04-21 11:00 | disposition home or self-care (01) ==
LOC: INF 09:04
PROVIDERS: Visit Provider Internal Medicine
DX: L40.50 Arthropathic psoriasis, unspecified (principal)
CPT/HCPCS: 85025; 96413; J1602

== ENCOUNTER → 2019-05-19 16:17 | Outpatient (CLI) | payer OTHER, SELFPAY ==
[2019-05-22 12:48] LABS: Hep A Ab, IgM N; Hepatitis B Surface Antigen N
[2019-05-22 12:49] LABS: Hepatitis B Core Antibody IgM N; Hepatitis C Antibody <.1
[2019-05-25 15:45] LABS: QuantiFERON-TB Gold Plus N
== END ==
PROVIDERS: Visit Provider Nurse Practitioner Women's Health
DX: L40.50 Arthropathic psoriasis, unspecified (principal)
CPT/HCPCS: 36415; 80074; 86480

== ENCOUNTER 2019-07-14 13:08 | Outpatient (RCR) | payer OTHER, SELFPAY | END 2019-07-14 14:00 | disposition home or self-care (01) | LOC: PT 13:08 | PROVIDERS: PCP Nurse Practitioner Family; Visit Provider Neurological Surgery | DX: M54.5 Low back pain (principal) | CPT/HCPCS: 97010; 97014; 97110; 97163; G0283 ==

== ENCOUNTER → 2019-08-13 11:19 | Outpatient (CLI) | payer OTHER, SELFPAY ==
--- NOTE | 2019-08-13 11:30 | XR_ITS ---
PROCEDURE: XR LUMBAR SPINE 2-3V CLINICAL INDICATION: LBP Low back pain, right leg numbness, prior lumbar surgery COMPARISON: XR LUMBAR SPINE 2-3V from 03/07/2019 FINDINGS: There has been interval lumbar surgery with inter pedicular screws at L4-L5 and S1 with disc spacer device at L4-5 and L5-S1. Defect noted centrally and on the right at L5. There is minimal lumbar curvature convex left. There is degenerative disc disease as before. There is good alignment. No acute fracture or dislocation. No lytic or blastic change. IMPRESSION: Postsurgical changes with lumbar spondylosis as described above Dictated by: Tiago Duenas MD 08/13/2019 12:01 Electronically signed by Tiago Duenas MD in [place] 08/13/2019 12:01
== END ==
PROVIDERS: PCP Internal Medicine Adolescent Medicine; Visit Provider Neurological Surgery
DX: M54.5 Low back pain (principal)
CPT/HCPCS: 72100

== ENCOUNTER → 2019-08-26 12:42 | Outpatient (CLI) | payer OTHER, SELFPAY ==
--- NOTE | 2019-08-26 13:04 | MR_ITS ---
PROCEDURE: MR LUMBAR SPINE WO/W CON CLINICAL INDICATION: LOW BACK PAIN Low back pain, prior lumbar surgery, recent lumbar surgery, right leg pain and numbness COMPARISON: MR LUMBAR SPINE WO CON from 03/21/2019 TECHNIQUE: Standard multiplanar multiecho sequences are performed without and with gadolinium enhancement trast. 3-D MIP and myelographic images are also rendered and reviewed FINDINGS: There is normal alignment. The spinal cord ends at the L1-L2 level. There is a postsurgical fluid collection in the subcutaneous fat at the L2-L3 and L4 level FNA somewhat irregular contour measuring up to 6 cm cephalad caudad and 4 cm in AP dimension with some minimal enhancement of the periphery of the collection with suggestion of a small capsule forming along the periphery. T11-T12: Degenerative disc disease with mild bulging disc. T12-L1: Degenerate disc disease. L1-L2: Minimal bulging disc with degenerative disc disease. L2-L3: Degenerate disc disease with bulging disc along with facet and ligamentum hypertrophy with mild bilateral lateral recess and mild bilateral foraminal narrowing unchanged L3-L4: Degenerative disc disease with mild concentric bulging disc along with facet and ligamentum hypertrophy with mild bilateral lateral recess and foraminal narrowing not significantly changed. L4-5: Artifact is present from inter pedicular screws and disc spacer device. There is minimal anterolisthesis of L4 with bulging disc along with facet ligamentum hypertrophy with bilateral lateral recess narrowing and bilateral foraminal narrowing. There is improvement in the canal stenosis compared to the previous exam with less ligamentum hypertrophy noted. There is however persistent mild narrowing of the canal measuring 10 mm. There is moderate bilateral lateral recess narrowing which is greater on the right compared to the left. This is causing some minimal displacement of the posterior layering nerve roots on that side. Post laminectomy changes are present. L5-S1: Postsurgical changes with inter pedicular screws and connecting rods status post right-sided laminectomy. There has been interval improvement in the ligamentum hypertrophy and narrowing of the canal. There is some persistent bilateral foraminal narrowing. Disc spacer is also present at this level. There is mild generalized enhancement of the soft tissues in the surgical bed at the L4-L5 region greater on the left and at the L5-S1 region greater on the right at the areas of the previous laminectomies. The soft tissue enhancement does extend into the neural foramen and lateral recess on the right at L5-S1 and on the left at L4-5. These changes may merely be postsurgical with inflammation. Cannot exclude underlying infective process radiographically. No extruded herniated disc is evident. IMPRESSION: 1. Multilevel lumbar spondylosis with degenerative disc disease with bulging disc along with facet ligamentum hypertrophy with lateral recess and foraminal narrowing. Please see above for detailed description at each level. 2. Postsurgical changes with postsurgical fluid collection extending from L2-L5 cephalad caudad. The collection does appear to extend posteriorly to the skin surface or just beneath the skin surface with a track noted at this region. This collection could be seroma or hematoma. Postsurgical abscess would be included in the differential diagnosis. Please correlate with clinical parameters. 3. L4-5: Artifact is present from inter pedicular screws and disc spacer device. There is minimal anterolisthesis of L4 with bulging disc along with facet ligamentum hypertrophy with bilateral lateral recess narrowing and bilateral foraminal narrowing. There is improvement in the canal stenosis
[2019-08-26 13:05] LABS: Blood Urea Nitrogen 22 mg/dl (7-17); Estimated Glomerular Filt Rate 85 ml/min (>60); GFR (African American) 103 ML/MIN (>60)
== END ==
PROVIDERS: PCP Internal Medicine Adolescent Medicine; Visit Provider Neurological Surgery
DX: M54.5 Low back pain (principal)
CPT/HCPCS: 36415; 72158; 76376; 82565; 84520; A9576

== ENCOUNTER 2019-10-04 03:25 | Emergency (ER) | payer OTHER, SELFPAY ==
[2019-10-04 03:26] VITALS: BP 129/82; PULSE 111; RESP 18; TEMP 36.6; O2SAT 98; BMI 40.3
--- NOTE | 2019-10-04 03:47 | CT_ITS ---
PROCEDURE: CT ABDOMEN PELVIS W CON CLINICAL INDICATION: abd. cramping Abdominal pain and cramping, nausea vomiting and diarrhea COMPARISON: ABDPELW CT ABD PELVIS W/ CONTRAST from 01/26/2015 TECHNIQUE: IV Contrast: 75ML OPTIRAY 350 Oral Contrast none Axial images obtained with sagittal and coronal reformats. All CT scans at the facility use one or more dose reduction, viz: automated exposure control, ma/kV adjustment per patient size (including targeted exams where dose is matched to indication, i.e. head), or iterative reconstruction technique. FINDINGS: LOWER THORAX: There is a small hiatal hernia. Calcified granuloma is present in the right lung base. ABDOMEN & PELVIS: The liver, spleen, adrenal glands, pancreas, and kidneys have an unremarkable appearance.. Previously noted thin band of decreased attenuation in the anterior aspect of the right hepatic lobe is not significantly changed. No acute findings of the liver. The kidneys have an unremarkable appearance. No renal or ureteral calculi. No hydronephrosis. Fluid-filled loops of large and small bowel are present with some mild thickening of the jejunum noted. No intestinal obstruction or free air. Partial hemicolectomy noted of the cecum. Prior hysterectomy. No evidence of diverticulitis or appendicitis. There postsurgical changes of the lumbar spine. IMPRESSION: 1. Nondistended fluid-filled loops of small and large bowel with mild mucosal thickening of the jejunum. Enterocolitis is considered. 2. Small hiatal hernia. 3. Other nonacute findings as described above. Dictated by: Tiago Duenas MD 10/04/2019 07:17 Electronically signed by Tiago Duenas MD in [place] 10/04/2019 07:17
[2019-10-04 04:01] LABS: Basophils % 0.3 % (0.1-2.0); Eosinophils # 0.2 K/mm3 (0.0-0.4); Eosinophils % 1.4 % (0.1-12.0); Hematocrit 45.1 % (37.0-47.0); Hemoglobin 14.6 g/dL (12.2-16.2); Lymphocytes # 1.4 K/mm3 (0.7-4.5); Lymphocytes % 12.9 % (10-50); Mean Corpuscular HGB Conc 32.3 g/dL (31.8-35.4); Mean Corpuscular Hemoglobin 31.1 pg (27.0-31.2); Mean Corpuscular Volume 96.1 fl (81-99); Mean Platelet Volume 7.4 fl (7.4-10.4); Monocytes # 0.3 K/mm3 (0.1-1.0); Neutrophils # 8.8 K/mm3 (1.8-7.8); Neutrophils % 82.4 % (37.0-80.0); Platelet Count 339 K/mm3 (142-424); Red Cell Distribution Width 13.9 % (11.5-17.5); White Blood Count 10.7 K/mm3 (4.8-10.8)
[2019-10-04 04:07] LABS: Alanine Aminotransferase 25 U/L (12-78); Albumin Level 4.8 g/dl (3.5-5.0); Albumin/Globulin Ratio 1.4 (1.1-1.8); Alkaline Phosphatase 103 U/L (38-126); Amylase 325 U/L (30-110); Anion Gap 14.5 mEq/L (5-15); Aspartate Amino Transferase 28 U/L (14-36); Bilirubin,Total 0.3 mg/dl (0.2-1.3); Blood Urea Nitrogen 29 mg/dl (7-17); Calcium 9.5 mg/dl (8.4-10.2); Carbon Dioxide 29 mmol/L (22.0-30.0); Chloride 99 mmol/L (98-107); Creatinine Clearance Estimated 104 mL/min (50-200); Estimated Glomerular Filt Rate 56 ml/min (>60); GFR (African American) 68 ML/MIN (>60); Globulin 3.5 g/dL (1.3-3.2); Glucose 111 mg/dl (74-100); Potassium 3.5 mmoL/L (3.5-5.1); Sodium 139 mmol/L (136-145); Total Protein,Serum 8.3 g/dl (6.3-8.2)
[2019-10-04 04:13] LABS: C-Reactive Protein 8.4 mg/L (0-4)
[2019-10-04 04:23] LABS: Lipase 2264 U/L (23-300)
[2019-10-04 04:26] VITALS: BP 121/74; PULSE 97; RESP 15; O2SAT 98
[2019-10-04 04:28] LABS: Campylobacter Not Detected (NotDetected); Clostridium Difficile A/B, PCR Not Detected (NotDetected); Enteroaggregative E coli Not Detected (NotDetected); Enteropathogenic E coli Not Detected (NotDetected); Enterotoxigenic E coli Not Detected (NotDetected); Plesimonas Shigalloides, PCR Not Detected (NotDetected); Salmonella, PCR Not Detected (NotDetected); Vibrio Cholerae Not Detected (NotDetected); Vibrio, PCR Not Detected (NotDetected); Yersinia Entercolitica, PCR Not Detected (NotDetected)
[2019-10-04 04:28] LABS: Erythrocyte Sedimentation Rate 22 mm/hr (0-30)
[2019-10-04 04:29] LABS: Adenovirus F 40/41, stool Not Detected (NotDetected); Astrovirus Not Detected (NotDetected); Cryptosporidium Not Detected (NotDetected); Cyclospora Cayetanesis Not Detected (NotDetected); Entamoeba histolytica Not Detected (NotDetected); Giardia lamblia Not Detected (NotDetected); Rotavirus A Not Detected (NotDetected); Sapovirus Not Detected (NotDetected); Shiga-like toxin E coli Not Detected (NotDetected); Shigella Enterovasive E coli Not Detected (NotDetected)
--- NOTE | 2019-10-04 04:43 | HMH.EDNVD ---
ED Disposition Clinical Impression: Hildreth virus enteritis Pancreatitis, acute Qualifiers: Pancreatitis type: unspecified pancreatitis type Acute pancreatitis complication: no infection or necrosis Qualified Code(s): K85.90 - Acute pancreatitis without necrosis or infection, unspecified Disposition: Home, Self-Care Condition on Discharge: Fair Instructions: DI for Diarrhea and Traveler's Diarrhea -- Adult Additional Instructions: hold nsaif and fluids and call pcp for follow up Referrals: Roger Maguire MD [Primary Care Provider] - - Critical Care Critical Care Time: No Attestation: On 10/04/19, the high probability of a clinically significant, sudden or life threatening deterioration of the following system(s) required my full and direct attention, intervention and personal management. The time I documented below is in addition to time spent performing reported procedures but includes the following listed in this critical care notation. Medical Decision Making - Medical Records Medical records reviewed: Yes: I reviewed the patient's medical records. - Alex Inquiry Pt receiving controlled substance: No Vital Signs: 10/04/19 03:26 10/04/19 04:26 Temperature 97.8 F Temperature Source Oral Pulse Rate [Left Radial] 111 H 97 H Respiratory Rate 18 15 Blood Pressure [Right Arm] 129/82 121/74 Blood Pressure Mean [Right Arm] 97 89 Blood Pressure Source [Right Arm] Automatic Cuff Automatic Cuff Blood Pressure Position [Right Arm] Sitting Sitting 02 Sat by Pulse Oximetry 98 98 Oxygen Delivery Method Room Air Room Air - Lab Data Lab results reviewed: Yes: I reviewed the patient's lab results. Lab Results 10/04/19 03:35: Stl Aeromonas (PCR) Not detected, Stl C. cayetanensis PCR Not detected, Stool Rotavirus (PCR) Not detected, Stl Adenov F 40/41 PCR Not detected, Stool Astrovirus (PCR) Not detected, Stool Campylobacter PCR Not detected, Stl C.difficile Tox PCR Not detected, Stool Cryptosporidium PCR Not detected, Stl E.coli Shiga Tox PCR Not detected, Stool E coli O157 PCR Not detected, Stl Enterotoxigenic E PCR Not detected, Stool EPEC (PCR) Not detected, Stool EAEC (PCR) Not detected, Stl E. histolytica PCR Not detected, Stool Giardia Lamblia PCR Not detected, Stool Salmonella PCR Not detected, Stool Sapovirus (PCR) Not detected, Stl P. shigelloides PCR Not detected, Stl Shigella/EIEC PCR Not detected, St Y.enterocolitica PCR Not detected, Stool Vibrio (PCR) Not detected, Stl Vibrio cholerae PCR Not detected, Stl Norovirus GI/GII PCR Detected A 10/04/19 03:50: WBC 10.7, RBC 4.70, Hgb 14.6, Hct 45.1, MCV 96.1, MCH 31.1, MCHC 32.3, RDW 13.9, Plt Count 339, MPV 7.4, Neut % (Auto) 82.4 H, Lymph % (Auto) 12.9, Boundary % (Auto) 3.0, Eos % (Auto) 1.4, Baso % (Auto) 0.3, Neut # (Auto) 8.8 H, Lymph # (Auto) 1.4, Boundary # (Auto) 0.3, Eos # (Auto) 0.2, Baso # (Auto) 0.0, ESR 22 10/04/19 03:50: Sodium 139, Potassium 3.5, Chloride 99, Carbon Dioxide 29, Anion Gap 14.5, BUN 29 H, Creatinine 1.00, Estimated Creat Clear 104, Estimated GFR 56 L, Est GFR ( Amer) 68, Glucose 111 H, Calcium 9.5, Total Bilirubin 0.3, AST 28, ALT 25, Alkaline Phosphatase 103, C-Reactive Protein 8.4 H, Total Protein 8.3 H, Albumin 4.8, Globulin 3.5 H, Albumin/Globulin Ratio 1.4, Amylase 325 H*, Lipase 2264 H Result diagrams: 10/04/19 03:50 10/04/19 03:50 Orders (Tests/Meds): ED MEDICATIONS Generic Name Dose Route Start Last Admin Trade Name Freq PRN Reason Stop Dose Admin Sodium Chloride 1,000 mls @ 999 mls/hr 10/04/19 04:00 10/04/19 04:02 Sod Chlor 0.9% 1000ml Bag IV 10/04/19 05:00 999 mls/hr .Q1H1M JP Administration Sodium Chloride 1,000 mls @ 999 mls/hr 10/04/19 06:00 10/04/19 05:51 Sod Chlor 0.9% 1000ml Bag IV 10/04/19 07:00 999 mls/hr .Q1H1M JP Administration Sodium Chloride 8 ml 10/04/19 04:52 Sodium Chloride 0.9% 10ml Vial IV 11/03/19 04:51 NEEDED PRN dilute pepcid Discontinued Medication
[2019-10-04 05:59] LABS: Norovirus Detected (NotDetected)
[2019-10-04 06:44] VITALS: BP 121/80; PULSE 84; RESP 15; TEMP 36.6; O2SAT 99
== END 2019-10-04 06:47 | disposition home or self-care (01) ==
PROVIDERS: Emergency Provider Emergency Medicine; PCP Internal Medicine Adolescent Medicine
DX: A08.11 Acute gastroenteropathy due to Norwalk agent (principal); K85.90 Acute pancreatitis without necrosis or infection, unspecified; E03.9 Hypothyroidism, unspecified; I10 Essential (primary) hypertension; Z90.79 Acquired absence of other genital organ(s); Z79.899 Other long term (current) drug therapy
CPT/HCPCS: 74177; 80053; 82150; 83690; 85025; 85651; 86140; 87507; 96365; 96366; 96375; 99283; J2405; Q9967

== ENCOUNTER → 2019-12-09 15:07 | Outpatient (CLI) | payer OTHER, SELFPAY ==
[2019-12-09 16:12] LABS: Basophils % 0.4 % (0.1-2.0); Eosinophils # 0.1 K/mm3 (0.0-0.4); Hemoglobin 12.7 g/dL (12.2-16.2); Lymphocytes % 34.7 % (10-50); Mean Corpuscular HGB Conc 33.5 g/dL (31.8-35.4); Mean Corpuscular Hemoglobin 30.8 pg (27.0-31.2); Mean Corpuscular Volume 91.9 fl (81-99); Mean Platelet Volume 7.9 fl (7.4-10.4); Monocytes # 0.3 K/mm3 (0.1-1.0); Monocytes % 5.1 % (1.7-9.3); Neutrophils # 3.3 K/mm3 (1.8-7.8); Neutrophils % 57.8 % (37.0-80.0); Platelet Count 259 K/mm3 (142-424); Red Blood Count 4.13 M/mm3 (4.20-5.40); Red Cell Distribution Width 14.7 % (11.5-17.5); White Blood Count 5.7 K/mm3 (4.8-10.8)
[2019-12-09 16:35] LABS: Chloride 102 mmol/L (98-107); Potassium 4.4 mmoL/L (3.5-5.1); Sodium 141 mmol/L (136-145)
[2019-12-09 16:37] LABS: Blood Urea Nitrogen 25 mg/dl (7-17); Estimated Glomerular Filt Rate 101 ml/min (>60); GFR (African American) 122 ML/MIN (>60)
[2019-12-09 16:38] LABS: Alanine Aminotransferase 23 U/L (12-78); Albumin Level 3.9 g/dl (3.5-5.0); Albumin/Globulin Ratio 1.4 (1.1-1.8); Alkaline Phosphatase 83 U/L (38-126); Anion Gap 11.4 mEq/L (5-15); Aspartate Amino Transferase 28 U/L (14-36); Bilirubin,Total 0.5 mg/dl (0.2-1.3); Calcium 9.7 mg/dl (8.4-10.2); Carbon Dioxide 32 mmol/L (22.0-30.0); Globulin 2.7 g/dL (1.3-3.2); Glucose 84 mg/dl (74-100); Total Protein,Serum 6.6 g/dl (6.3-8.2)
[2019-12-09 16:43] LABS: C-Reactive Protein 13.2 mg/L (0-4)
[2019-12-09 18:19] LABS: Erythrocyte Sedimentation Rate 24 mm/hr (0-30)
== END ==
PROVIDERS: Visit Provider Nurse Practitioner Women's Health
DX: D89.9 Disorder involving the immune mechanism, unspecified (principal); L40.50 Arthropathic psoriasis, unspecified; Z79.1 Long term (current) use of non-steroidal anti-inflammatories (NSAID)
CPT/HCPCS: 36415; 80053; 85025; 85651; 86140

== ENCOUNTER 2020-01-07 11:00 | Outpatient (RCR) | payer OTHER, SELFPAY | END 2020-01-07 12:00 | disposition home or self-care (01) | LOC: PT 11:00 | PROVIDERS: PCP Internal Medicine Adolescent Medicine; Visit Provider Neurological Surgery | DX: M54.5 Low back pain (principal) | CPT/HCPCS: 97110; 97113; 97140; 97163; 97164; 97530 ==

== ENCOUNTER → 2020-02-11 09:19 | Outpatient (CLI) | payer OTHER, SELFPAY ==
--- NOTE | 2020-02-11 09:23 | MM_ITS ---
PROCEDURE: MM DIG SCREENING MAMM BI W/CAD Digital Breast Tomosynthesis Included CLINICAL INDICATION: SCREENING There is no personal or family history of breast cancer. COMPARISON: MG DMSB DIG MAMM-SCREEN UMM from 10/21/2014 MG DMSB DIG MAMM-SCREEN UMM from 10/28/2015 MG [id number] DIG MAMM-DX UNI ADD VIEWS-LT from 11/10/2015 MG DMSB DIG MAMM-SCREEN UMM W/CAD from 01/30/2017 TECHNIQUE: Standard CC and MLO images and 3D Tomosynthesis was obtained. R2 CAD reviewed. FINDINGS: The breasts are composed primarily of fat with minimal scattered fibroglandular densities throughout each breast. There is a mole marker right breast. There is no suspicious lesion and no suspicious microcalcifications. IMPRESSION: Fibrofatty parenchyma with no suspicious lesions seen BI-RAD Category: 1 Negative FOLLOW-UP: 1YR 1 Year Follow-up (A letter has been sent to the patient regarding results of the study.) Dictated by: Dr. Marcel Mansfield MD 02/16/2020 09:44 Dr. Marcel Mansfield MD in [place] 02/16/2020 09:44
== END ==
PROVIDERS: PCP Internal Medicine Adolescent Medicine; Visit Provider Internal Medicine Adolescent Medicine
DX: Z12.31 Encounter for screening mammogram for malignant neoplasm of breast (principal)
CPT/HCPCS: 77063; 77067

== ENCOUNTER → 2020-04-13 08:44 | Outpatient (CLI) | payer OTHER, SELFPAY ==
[2020-04-13 09:28] LABS: Basophils # 0.1 K/mm3 (0-0.2); Basophils % 0.8 % (0.1-2.0); Eosinophils # 0.2 K/mm3 (0.0-0.4); Eosinophils % 2.9 % (0.1-12.0); Hemoglobin 14.2 g/dL (12.2-16.2); Lymphocytes # 2.2 K/mm3 (0.7-4.5); Lymphocytes % 36.7 % (10-50); Mean Corpuscular HGB Conc 32.3 g/dL (31.8-35.4); Mean Corpuscular Hemoglobin 30.6 pg (27.0-31.2); Mean Corpuscular Volume 94.6 fl (81-99); Mean Platelet Volume 8.2 fl (7.4-10.4); Monocytes # 0.4 K/mm3 (0.1-1.0); Neutrophils # 3.2 K/mm3 (1.8-7.8); Neutrophils % 53.6 % (37.0-80.0); Platelet Count 262 K/mm3 (142-424); Red Blood Count 4.65 M/mm3 (4.20-5.40); Red Cell Distribution Width 14.3 % (11.5-17.5)
[2020-04-13 09:40] LABS: Chloride 104 mmol/L (98-107); Potassium 4.4 mmoL/L (3.5-5.1); Sodium 140 mmol/L (136-145)
[2020-04-13 09:43] LABS: Alanine Aminotransferase 27 U/L (12-78); Albumin Level 4.2 g/dl (3.5-5.0); Albumin/Globulin Ratio 1.6 (1.1-1.8); Alkaline Phosphatase 95 U/L (38-126); Anion Gap 8.4 mEq/L (5-15); Aspartate Amino Transferase 30 U/L (14-36); Bilirubin,Total 0.5 mg/dl (0.2-1.3); Blood Urea Nitrogen 22 mg/dl (7-17); Carbon Dioxide 32 mmol/L (22.0-30.0); Estimated Glomerular Filt Rate 72 ml/min (>60); GFR (African American) 88 ML/MIN (>60); Globulin 2.7 g/dL (1.3-3.2); Total Protein,Serum 6.9 g/dl (6.3-8.2)
[2020-04-13 09:44] LABS: Calcium 9.3 mg/dl (8.4-10.2); Glucose 101 mg/dl (74-100)
[2020-04-13 09:49] LABS: C-Reactive Protein 5.2 mg/L (0-4)
[2020-04-13 10:03] LABS: Erythrocyte Sedimentation Rate 14 mm/hr (0-30)
== END ==
PROVIDERS: Visit Provider Internal Medicine
DX: D89.9 Disorder involving the immune mechanism, unspecified (principal); L40.50 Arthropathic psoriasis, unspecified
CPT/HCPCS: 36415; 80053; 85025; 85651; 86140

== ENCOUNTER 2020-05-09 16:29 | Emergency (ER) | payer OTHER, SELFPAY ==
[2020-05-09 17:30] VITALS: BP 162/77; PULSE 100; RESP 20; TEMP 37; O2SAT 97; BMI 29.9
--- NOTE | 2020-05-09 18:21 | HMH.EDUTC ---
[facility] [place] Clinical Impression: Strep throat Disposition: Home, Self-Care Condition on Discharge: Good Instructions: DI for Strep Throat, DI for COVID-19 (Suspected or Confirmed ), Preventing the Spread of Coronavirus Discharge Instructions Additional Instructions: Start antibiotics today be sure to take it as ordered with the full length of time although you should start feeling better in 24-48 hours. Change toothbrush and toothpaste 24-48 hours after starting antibiotics Tylenol or Motrin as needed for fever or pain Encourage fluids, water, Gatorade, Powerade, try cold fluids, popsicles, ice cream will make it feel better You are contagious for 24 hours. Avoid kissing anyone, no eating or drinking after anyone. You are contagious. Follow-up the ER for new or worsening symptoms or no noticeable improvement over the next 24-48 hours. Follow-up with PCP this week. self isolate until test results are known to be neg Prescriptions: Azithromycin [Zithromax 250mg tab] 250 mg PO DIRECTED #4 tab Transmission Status: Pending to [id number] Referrals: Roger Maguire MD [Primary Care Provider] - Forms: Work/School Release Time of Disposition: 18:26 Medical Decision Making - Alex Inquiry Pt receiving controlled substance: No Vital Signs: 05/09/20 17:30 Temperature 98.6 F Temperature Source Oral Pulse Rate [Right Brachial] 100 H Respiratory Rate 20 Blood Pressure [Right Arm] 162/77 H Blood Pressure Mean [Right Arm] 105 Blood Pressure Source [Right Arm] Automatic Cuff Blood Pressure Position [Right Arm] Sitting 02 Sat by Pulse Oximetry 97 Oxygen Delivery Method Room Air Orders (Tests/Meds): ORDERS Category Date Time Status Covid-19 Nasal PCR ([facility]) Routine Lab 05/09/20 17:30 [place] [facility] [place] - General Chief complaint: [facility] Stated complaint: Chills,Achy,sore throat;fluid in ears Time Seen by Provider: 05/09/20 18:22 Mode of Arrival: Ambulatory Source of Information: Patient Limitations: No Limitations Description of Symptoms (Recalled from Triage Doc. by RN): PATIENT C/O CHILLS, BODY ACHES, SNEEZING, SORE THROAT, AND EAR PAIN SINCE YESTERDAY HEENT Symptoms (Recalled from RN notes): Yes Resp Symptoms (Recalled from RN notes): No Skin Symptoms (Recalled from RN notes): No MS Symptoms (Recalled from RN notes): No Functional Status (Recalled from RN notes): WNL - History of Present Illness Provider Complaint: 64 yr old female presents for sore throat, chills,body aches and left ear pain - Related Data Home Medications Medication Instructions Recorded Confirmed Escitalopram Oxalate [Lexapro] 20 mg PO DAILY 09/20/17 10/04/19 Levothyroxine Sodium 100 mg PO DAILY 09/20/17 10/04/19 [Levothyroxine 100mcg (0.1MG) Tab] Losartan/Hydrochlorothiazide 1 each PO DAILY 09/20/18 10/04/19 [Losartan-Hctz 50-12.5 mg Tab] Famotidine [Pepcid] 20 mg PO TID 04/21/19 10/04/19 Ibuprofen [Ibuprofen 800mg 800 mg PO TID 04/21/19 10/04/19 Tablet] Previous Rx's Medication Instructions Recorded Azithromycin [Zithromax 250mg 250 mg PO DIRECTED #4 tab 05/09/20 tab] Allergies Allergy/AdvReac Type Severity Reaction Status Date / Time No Known Allergies Allergy Verified 10/04/19 05:17 - Worker's Comp Is this a Worker's Comp case?: No [facility] History - Hepatitis A Screen Drug use history?: No High risk sexual behaviors?: No History of sexually transmitted infection?: No Currently employed?: No Childcare worker?: No Do you have indoor plumbing?: Yes Do you have electricity?: Yes Attestation statement:: This patient has been screened for Hepatitis A risk factors. I have reviewed the patient's past medical history: Yes Medical History: Reports:: Hypertension Denies:: Cancer, Diabetes Mellitus Type 1, Diabetes Mellitus Type 2, MRSA Other Medical History: Reports: Arthritis, Hypothyroidism, Sinus Problems, Other (psoriatic arthritis)
[2020-05-09 18:35] VITALS: BP 162/77; PULSE 100; RESP 20; TEMP 37; O2SAT 97
--- NOTE | 2020-05-09 20:49 | PC.NURSE ---
PATIENT NOTIFIED OF POSITIVE COVID RESULTS
== END 2020-05-09 18:41 | disposition home or self-care (01) ==
PROVIDERS: Emergency Provider Nurse Practitioner Family; PCP Internal Medicine Adolescent Medicine
DX: U07.1 COVID-19 (principal); J02.0 Streptococcal pharyngitis; I10 Essential (primary) hypertension; E03.9 Hypothyroidism, unspecified; Z79.899 Other long term (current) drug therapy
CPT/HCPCS: 99202; G0463; U0003

== ENCOUNTER → 2020-07-20 14:52 | Outpatient (CLI) | payer OTHER, SELFPAY ==
[2020-07-20 15:15] LABS: Basophils # 0.1 K/mm3 (0-0.2); Basophils % 0.7 % (0.1-2.0); Eosinophils # 0.3 K/mm3 (0.0-0.4); Eosinophils % 3.4 % (0.1-12.0); Hematocrit 41.4 % (37.0-47.0); Hemoglobin 13.8 g/dL (12.2-16.2); Lymphocytes # 2.3 K/mm3 (0.7-4.5); Lymphocytes % 30.4 % (10-50); Mean Corpuscular HGB Conc 33.4 g/dL (31.8-35.4); Mean Corpuscular Hemoglobin 30.9 pg (27.0-31.2); Mean Corpuscular Volume 92.5 fl (81-99); Mean Platelet Volume 7.8 fl (7.4-10.4); Monocytes # 0.4 K/mm3 (0.1-1.0); Monocytes % 5.1 % (1.7-9.3); Neutrophils # 4.6 K/mm3 (1.8-7.8); Neutrophils % 60.5 % (37.0-80.0); Platelet Count 297 K/mm3 (142-424); Red Blood Count 4.48 M/mm3 (4.20-5.40); Red Cell Distribution Width 14.1 % (11.5-17.5); White Blood Count 7.6 K/mm3 (4.8-10.8)
[2020-07-20 16:19] LABS: Alanine Aminotransferase 44 U/L (12-78); Albumin Level 4.4 g/dl (3.5-5.0); Albumin/Globulin Ratio 1.6 (1.1-1.8); Alkaline Phosphatase 83 U/L (38-126); Anion Gap 12.5 mEq/L (5-15); Aspartate Amino Transferase 38 U/L (14-36); Bilirubin,Total 0.4 mg/dl (0.2-1.3); Blood Urea Nitrogen 26 mg/dl (7-17); Calcium 9.8 mg/dl (8.4-10.2); Carbon Dioxide 27 mmol/L (22.0-30.0); Chloride 106 mmol/L (98-107); Estimated Glomerular Filt Rate 56 ml/min (>60); GFR (African American) 68 ML/MIN (>60); Globulin 2.7 g/dL (1.3-3.2); Glucose 94 mg/dl (74-100); Potassium 4.5 mmoL/L (3.5-5.1); Sodium 141 mmol/L (136-145); Total Protein,Serum 7.1 g/dl (6.3-8.2)
[2020-07-20 16:24] LABS: C-Reactive Protein 4.8 mg/L (0-4)
[2020-07-20 16:51] LABS: Thyroid Stimulating Hormone 1.03 uIU/mL (0.465-4.68)
[2020-07-20 17:09] LABS: Vitamin B12 951 pg/mL (239-931)
[2020-07-20 17:55] LABS: Erythrocyte Sedimentation Rate 15 mm/hr (0-30)
== END ==
PROVIDERS: PCP Nurse Practitioner Family; Visit Provider Nurse Practitioner Family
DX: D89.9 Disorder involving the immune mechanism, unspecified (principal); L40.50 Arthropathic psoriasis, unspecified; R53.81 Other malaise; E03.9 Hypothyroidism, unspecified; Z79.899 Other long term (current) drug therapy
CPT/HCPCS: 36415; 80053; 82306; 82607; 84443; 85025; 85651; 86140

== ENCOUNTER → 2020-08-25 12:57 | Outpatient (CLI) | payer OTHER, SELFPAY | PROVIDERS: PCP Nurse Practitioner Family; Visit Provider Internal Medicine Pulmonary Disease | DX: R06.09 Other forms of dyspnea (principal) | CPT/HCPCS: 94060; 94618; 94726; 94729 ==

== ENCOUNTER → 2020-09-16 14:14 | Outpatient (CLI) | payer OTHER, SELFPAY ==
--- NOTE | 2020-09-16 15:39 | XR_ITS ---
PROCEDURE: XR KUB CLINICAL INDICATION: CHRONIC CONSTIPATION W/ OVERFLOW COMPARISON: CT CT ABDOMEN PELVIS W CON from 10/04/2019 FINDINGS: Nonobstructive nonspecific bowel gas pattern is noted. Mild to moderate fecal retention of the colon. Minor multilevel degenerative changes of the lumbar spine with the endplate sclerosis and loss of disc height is noted. Posterior spinal fixation rods and intrapedicular screws are noted in the lower lumbar spine. Degenerative changes of the bilateral hip joints. IMPRESSION: No acute findings. Dictated by: Zina Smith 09/16/2020 16:32 Zina Smith in OV 09/16/2020 16:32
== END ==
PROVIDERS: PCP Nurse Practitioner Family; Visit Provider Nurse Practitioner Family
DX: K59.09 Other constipation (principal)
CPT/HCPCS: 74018

== ENCOUNTER → 2020-12-22 11:48 | Outpatient (CLI) | payer OTHER, SELFPAY ==
[2020-12-22 13:30] LABS: Basophils # 0.1 K/mm3 (0-0.2); Eosinophils # 0.6 K/mm3 (0.0-0.4); Eosinophils % 8.7 % (0.1-12.0); Hematocrit 39.3 % (37.0-47.0); Hemoglobin 13.1 g/dL (12.2-16.2); Lymphocytes # 2.1 K/mm3 (0.7-4.5); Lymphocytes % 31.1 % (10-50); Mean Corpuscular HGB Conc 33.3 g/dL (31.8-35.4); Mean Corpuscular Hemoglobin 31.1 pg (27.0-31.2); Mean Corpuscular Volume 93.2 fl (81-99); Mean Platelet Volume 8.6 fl (7.4-10.4); Monocytes # 0.3 K/mm3 (0.1-1.0); Monocytes % 4.9 % (1.7-9.3); Neutrophils # 3.6 K/mm3 (1.8-7.8); Neutrophils % 54.3 % (37.0-80.0); Platelet Count 225 K/mm3 (142-424); Red Blood Count 4.22 M/mm3 (4.20-5.40); Red Cell Distribution Width 13.6 % (11.5-17.5); White Blood Count 6.7 K/mm3 (4.8-10.8)
[2020-12-22 14:24] LABS: Erythrocyte Sedimentation Rate 20 mm/hr (0-30)
[2020-12-22 14:49] LABS: Alanine Aminotransferase 35 U/L (12-78); Albumin/Globulin Ratio 1.6 (1.1-1.8); Alkaline Phosphatase 68 U/L (38-126); Anion Gap 11.4 mEq/L (5-15); Aspartate Amino Transferase 36 U/L (14-36); Bilirubin,Total 0.5 mg/dl (0.2-1.3); Blood Urea Nitrogen 25 mg/dl (7-17); Carbon Dioxide 32 mmol/L (22.0-30.0); Chloride 100 mmol/L (98-107); Estimated Glomerular Filt Rate 72 ml/min (>60); GFR (African American) 87 ML/MIN (>60); Globulin 2.5 g/dL (1.3-3.2); Glucose 73 mg/dl (74-100); Potassium 4.4 mmoL/L (3.5-5.1); Sodium 139 mmol/L (136-145); Total Protein,Serum 6.5 g/dl (6.3-8.2)
[2020-12-22 14:58] LABS: C-Reactive Protein 1.8 mg/L (0-4)
== END ==
PROVIDERS: Visit Provider Internal Medicine
DX: D89.9 Disorder involving the immune mechanism, unspecified (principal); L40.50 Arthropathic psoriasis, unspecified
CPT/HCPCS: 36415; 80053; 85025; 85651; 86140

== ENCOUNTER → 2021-03-16 16:15 | Outpatient (CLI) | payer OTHER, SELFPAY ==
--- NOTE | 2021-03-16 16:20 | MM_ITS ---
PROCEDURE INFORMATION: Exam: MG Bilateral Screening 3D Mammography Exam date and time: 03/16/2021 4:20 PM Age: 65 years old Clinical indication: Screening exam; No personal or family HX of malignancy TECHNIQUE: Imaging protocol: Bilateral screening tomosynthesis and 2D mammography including computer-aided detection (CAD) when performed. COMPARISON: 1. MG MM DIG SCREENING MAMM BI W/CAD 02/11/2020 9:32 AM 2. MG DMSB DIG MAMM-SCREEN UMM W/CAD 01/30/2017 8:32 AM 3. MG DMDXUAVL DIG MAMM-DX UNI ADD VIEWS-LT 11/10/2015 2:31 PM FINDINGS: MAMMOGRAPHY: Breast composition: There are scattered areas of fibroglandular density. Mass: No suspicious masses. Architectural distortion: No suspicious distortion. Calcifications: No suspicious calcifications. Asymmetric density: None. Skin thickening: None. Axillary adenopathy: None. IMPRESSION: No mammographic evidence of malignancy. Annual screening is recommended unless otherwise clinically indicated. ASSESSMENT: BI-RADS Category 1: Negative
== END ==
PROVIDERS: PCP Nurse Practitioner Family; Visit Provider Nurse Practitioner Family
DX: Z12.31 Encounter for screening mammogram for malignant neoplasm of breast (principal)
CPT/HCPCS: 77063; 77067

== ENCOUNTER → 2021-06-13 10:21 | Outpatient (CLI) | payer BC, SELFPAY ==
[2021-06-13 11:13] LABS: Basophils # 0.1 K/mm3 (0-0.2); Basophils % 0.8 % (0.1-2.0); Eosinophils # 0.3 K/mm3 (0.0-0.4); Eosinophils % 3.2 % (0.1-12.0); Hematocrit 45.3 % (37.0-47.0); Hemoglobin 14.2 g/dL (12.2-16.2); Lymphocytes # 1.7 K/mm3 (0.7-4.5); Lymphocytes % 21.2 % (10-50); Mean Corpuscular HGB Conc 31.3 g/dL (31.8-35.4); Mean Corpuscular Hemoglobin 31.6 pg (27.0-31.2); Mean Corpuscular Volume 100.8 fl (81-99); Mean Platelet Volume 8.3 fl (7.4-10.4); Monocytes # 0.5 K/mm3 (0.1-1.0); Monocytes % 5.8 % (1.7-9.3); Neutrophils # 5.5 K/mm3 (1.8-7.8); Platelet Count 268 K/mm3 (142-424); Red Cell Distribution Width 13.6 % (11.5-17.5)
[2021-06-13 12:22] LABS: Alanine Aminotransferase 34 U/L (12-78); Albumin Level 4.6 g/dl (3.5-5.0); Albumin/Globulin Ratio 2.1 (1.1-1.8); Alkaline Phosphatase 71 U/L (38-126); Anion Gap 10.8 mEq/L (5-15); Aspartate Amino Transferase 43 U/L (14-36); Bilirubin,Total 0.5 mg/dl (0.2-1.3); Blood Urea Nitrogen 25 mg/dl (7-17); Carbon Dioxide 34 mmol/L (22.0-30.0); Chloride 101 mmol/L (98-107); Estimated Glomerular Filt Rate 72 ml/min (>60); GFR (African American) 87 ML/MIN (>60); Globulin 2.2 g/dL (1.3-3.2); Glucose 95 mg/dl (74-100); Potassium 4.8 mmoL/L (3.5-5.1); Sodium 141 mmol/L (136-145); Total Protein,Serum 6.8 g/dl (6.3-8.2)
[2021-06-13 12:27] LABS: C-Reactive Protein 1.2 mg/L (0-4)
[2021-06-13 12:45] LABS: Erythrocyte Sedimentation Rate 13 mm/hr (0-30)
[2021-06-14 11:26] LABS: Hep A Ab, IgM Negative (Negative); Hepatitis B Core Antibody IgM Negative (Negative); Hepatitis B Surface Antigen Negative (Negative); Hepatitis C Antibody <0.1 s/co ratio (0.0-0.9)
[2021-06-16 05:09] LABS: QuantiFERON-TB Gold Plus Negative (Negative)
== END ==
PROVIDERS: PCP Internal Medicine Adolescent Medicine; Visit Provider Nurse Practitioner Family
DX: D89.9 Disorder involving the immune mechanism, unspecified (principal); L40.50 Arthropathic psoriasis, unspecified; R53.83 Other fatigue
CPT/HCPCS: 36415; 80053; 80074; 85025; 85651; 86140; 86480

== ENCOUNTER → 2021-12-01 12:51 | Outpatient (CLI) | payer MEDICARE, OTHER, SELFPAY ==
[2021-12-01 13:19] LABS: Basophils # 0.1 K/mm3 (0-0.2); Basophils % 2.1 % (0.1-2.0); Eosinophils # 0.3 K/mm3 (0.0-0.4); Eosinophils % 5.3 % (0.1-12.0); Hematocrit 43.4 % (37.0-47.0); Hemoglobin 13.7 g/dL (12.2-16.2); Lymphocytes # 1.8 K/mm3 (0.7-4.5); Lymphocytes % 31.1 % (10-50); Mean Corpuscular HGB Conc 31.6 g/dL (31.8-35.4); Mean Corpuscular Hemoglobin 31.6 pg (27.0-31.2); Mean Corpuscular Volume 99.8 fl (81-99); Mean Platelet Volume 7.9 fl (7.4-10.4); Monocytes # 0.4 K/mm3 (0.1-1.0); Monocytes % 6.3 % (1.7-9.3); Neutrophils # 3.2 K/mm3 (1.8-7.8); Neutrophils % 55.1 % (37.0-80.0); Platelet Count 249 K/mm3 (142-424); Red Blood Count 4.35 M/mm3 (4.20-5.40); Red Cell Distribution Width 13.8 % (11.5-17.5); White Blood Count 5.8 K/mm3 (4.8-10.8)
[2021-12-01 13:46] LABS: Erythrocyte Sedimentation Rate 13 mm/hr (0-30)
[2021-12-01 14:59] LABS: Alanine Aminotransferase 30 U/L (12-78); Albumin/Globulin Ratio 1.7 (1.1-1.8); Alkaline Phosphatase 87 U/L (38-126); Anion Gap 8.7 mEq/L (5-15); Aspartate Amino Transferase 36 U/L (14-36); Blood Urea Nitrogen 23 mg/dl (7-17); Calcium 9.5 mg/dl (8.4-10.2); Carbon Dioxide 34 mmol/L (22.0-30.0); Chloride 102 mmol/L (98-107); Estimated Glomerular Filt Rate 63 ml/min (>60); GFR (African American) 76 ML/MIN (>60); Globulin 2.4 g/dL (1.3-3.2); Glucose 90 mg/dl (74-100); Potassium 4.7 mmoL/L (3.5-5.1); Sodium 140 mmol/L (136-145); Total Protein,Serum 6.4 g/dl (6.3-8.2)
[2021-12-01 15:05] LABS: Bilirubin,Total < 0.1 mg/dl (0.2-1.3); C-Reactive Protein 4.8 mg/L (0-4)
== END ==
PROVIDERS: PCP Internal Medicine Adolescent Medicine; Visit Provider Nurse Practitioner Family
DX: D89.9 Disorder involving the immune mechanism, unspecified (principal); L40.50 Arthropathic psoriasis, unspecified; Z51.81 Encounter for therapeutic drug level monitoring; Z79.1 Long term (current) use of non-steroidal anti-inflammatories (NSAID)
CPT/HCPCS: 36415; 80053; 85025; 85651; 86140

== ENCOUNTER → 2021-12-10 10:31 | Outpatient (CLI) | payer MEDICARE, OTHER, SELFPAY | PROVIDERS: PCP Internal Medicine Adolescent Medicine; Visit Provider Ophthalmology | DX: Z01.812 Encounter for preprocedural laboratory examination (principal); Z20.822 Contact with and (suspected) exposure to COVID-19 | CPT/HCPCS: C9803; U0003; U0005 ==

== ENCOUNTER 2021-12-13 08:40 | Day surgery (SDC) | payer MEDICARE, OTHER, SELFPAY ==
[2021-12-08 14:10] VITALS: BMI 34.0
[2021-12-13] VITALS (8 sets, daily range): BP systolic 152–191; BP diastolic 81–99; PULSE 62–70; RESP 16; TEMP 36.2–36.6; O2SAT 97–100
== END 2021-12-13 10:52 | disposition home or self-care (01) ==
LOC: OR 08:43
PROVIDERS: PCP Internal Medicine Adolescent Medicine; Visit Provider Ophthalmology
DX: H25.813 Combined forms of age-related cataract, bilateral (principal)
CPT/HCPCS: 66984; V2632

== ENCOUNTER → 2022-01-29 15:46 | Outpatient (CLI) | payer MEDICARE, OTHER, SELFPAY | PROVIDERS: PCP Internal Medicine Adolescent Medicine; Visit Provider Ophthalmology | DX: U07.1 COVID-19 (principal) | CPT/HCPCS: C9803; U0003; U0005 ==

== ENCOUNTER 2022-02-28 08:20 | Day surgery (SDC) | payer MEDICARE, SELFPAY ==
[2022-02-23 15:21] VITALS: BMI 34.4
[2022-02-28] VITALS (7 sets, daily range): BP systolic 153–172; BP diastolic 77–113; PULSE 61–74; RESP 16–18; TEMP 36.1–36.6; O2SAT 95–100
== END 2022-02-28 11:37 | disposition home or self-care (01) ==
LOC: OR 08:22
PROVIDERS: PCP Internal Medicine Adolescent Medicine; Visit Provider Ophthalmology
DX: H25.813 Combined forms of age-related cataract, bilateral (principal); Z79.899 Other long term (current) drug therapy
CPT/HCPCS: 66984; V2632

== ENCOUNTER → 2022-03-29 15:56 | Outpatient (CLI) | payer MEDICARE, SELFPAY ==
--- NOTE | 2022-03-29 15:58 | MM_ITS ---
PROCEDURE INFORMATION: Exam: MG Bilateral Screening 3D Mammography Exam date and time: 03/29/2022 3:49 PM Age: 66 years old Clinical indication: Screening examination TECHNIQUE: Imaging protocol: Bilateral Screening tomosynthesis and 2D mammography including computer-aided detection (CAD) when performed. COMPARISON: 1. MG MM DIG SCREENING MAMM BI W/CAD 03/16/2021 4:29 PM 2. MG MM DIG SCREENING MAMM BI W/CAD 02/11/2020 9:32 AM FINDINGS: MAMMOGRAPHY: Breast composition: The breasts are almost entirely fatty. Mass: None. Architectural distortion: None. Calcifications: No suspicious calcifications. Asymmetric density: None. Skin thickening: None. Axillary adenopathy: None. IMPRESSION: No mammographic evidence of malignancy. Annual screening is recommended unless otherwise clinically indicated. ASSESSMENT: BI-RADS Category 1: Negative
== END ==
PROVIDERS: PCP Internal Medicine Adolescent Medicine; Visit Provider Nurse Practitioner Family
DX: Z12.31 Encounter for screening mammogram for malignant neoplasm of breast (principal)
CPT/HCPCS: 77063; 77067

== ENCOUNTER 2022-04-09 12:37 | Emergency (ER) | payer MEDICARE, SELFPAY ==
--- NOTE | 2022-04-09 13:42 | EXP.UTC ---
Discharge Plan Disposition Patient Disposition: Home, Self-Care Condition: Good Prescriptions Prescriptions: New benzonatate [benzonatate] 100 mg capsule 100 mg PO TIDP PRN (Reason: Cough) Qty: 30 0RF methylprednisolone 4 mg Tablets,Dose Pack 4 mg PO DIRECTED Qty: 21 0RF amoxicillin-pot clavulanate 500-125 mg tablet 1 tab PO BID Qty: 20 0RF No Action omeprazole 40 mg capsule,delayed release(DR/EC) 40 mg PO DAILY levothyroxine [Euthyrox] 50 mcg tablet 50 mcg PO DAILY albuterol sulfate 90 mcg/actuation HFA aerosol inhaler 1 inh inhalation QID PRN (Reason: shortness of breath or wheezing) Qty: 8.5 6RF budesonide-formoterol [Symbicort] 160-4.5 mcg/actuation HFA aerosol inhaler 2 puff inhalation BID 90 Days Qty: 10.2 3RF azelastine 137 mcg (0.1 %) aerosol,spray 2 spray intranasal BID 90 Days Qty: 30 3RF Rx Instructions: administer into each nostril ipratropium-albuterol 0.5 mg-3 mg(2.5 mg base)/3 mL solution for nebulization 3 ml inhalation Q6H PRN (Reason: shortness of breath or wheezing) Qty: 180 3RF levothyroxine 100 MCG tablet 100 mg PO DAILY escitalopram oxalate 20 MG tablet 20 mg PO DAILY losartan-hydrochlorothiazide 1 EACH tablet 1 each PO DAILY famotidine 20 MG tablet 20 mg PO TID diclofenac sodium 75 MG tablet,delayed release (DR/EC) 75 mg PO BID furosemide 20 MG tablet 20 mg PO DAILY gabapentin 100 MG capsule 300 mg PO QID rosuvastatin 5 MG tablet 5 mg PO DAILY budesonide-formoterol 10.2 GM HFA aerosol inhaler 10.2 gm IH DAILY Referrals Follow up/Referrals: Roger Maguire MD [Primary Care Provider] - See instructions Activity Restrictions/Add. Instructions Additional Instructions/Restrictions: Drink plenty of fluids. Take tylenol or ibuprofen for pain or fever. Take the medications as directed. Follow up with your regular doctor. GO TO THE ER FOR ANY WORSENING SYMPTOMS Don't start the oral steroids until tomorrow, since you had the shot here today. Clinical Impressions Clinical Impression: Acute bronchitis Instructions Patient Instructions: Acute Bronchitis, DI for Acute Bronchitis Discharge ED Provider: Ravi Manzanares [facility] General Stated complaint: Congestion,Cough Time Seen by Provider: 04/09/22 13:42 History of Present Illness Provider Complaint: She states that for the past 5 days she has had chest congestion and productive cough with greenish sputum. Related Data Home Medications Medication Instructions Recorded Confirmed escitalopram oxalate 20 mg tablet 20 mg PO DAILY mood 09/20/17 03/27/22 levothyroxine 100 mcg tablet 100 mg PO DAILY thyroid 09/20/17 03/27/22 losartan 50 mg-hydrochlorothiazide 1 each PO DAILY blood pressure 09/20/18 03/27/22 12.5 mg tablet famotidine 20 mg tablet 20 mg PO TID stomach 04/21/19 03/27/22 budesonide-formoterol HFA 160 10.2 gm inhalation DAILY covid 12/08/21 03/27/22 mcg-4.5 mcg/actuation aerosol asthma inhaler diclofenac sodium 75 mg 75 mg PO BID Pain 12/08/21 03/27/22 tablet,delayed release furosemide 20 mg tablet 20 mg PO DAILY Edema 12/08/21 03/27/22 gabapentin 100 mg capsule 300 mg PO QID Pain 12/08/21 03/27/22 rosuvastatin 5 mg tablet 5 mg PO DAILY Cholesterol 12/08/21 03/27/22 levothyroxine 50 mcg tablet 50 mcg PO DAILY 03/27/22 03/27/22 (Euthyrox) omeprazole 40 mg capsule,delayed 40 mg PO DAILY 03/27/22 03/27/22 release Previous Rx's Medication Instructions Recorded albuterol sulfate 90 mcg/actuation 1 inh inhalation QID PRN shortness 03/27/22 aerosol inhaler of breath or wheezing #8.5 grams azelastine 137 mcg (0.1 %) nasal 2 spray intranasal BID 90 days #30 03/27/22 spray aerosol mL budesonide-formoterol HFA 160 2 puff inhalation BID 90 days 03/27/22 mcg-4.5 mcg/actuation aerosol #10.2 grams inhaler (Symbicort) ipratropium 0.5 mg-albuterol 3 mg 3 ml inhalation Q6H PRN rob
[2022-04-09 13:51] VITALS: BP 144/89; PULSE 66; RESP 18; TEMP 36.7; O2SAT 98; BMI 31.3
[2022-04-09 14:49] VITALS: BP 144/89; PULSE 66; RESP 18; TEMP 36.7
== END 2022-04-09 14:51 | disposition home or self-care (01) ==
PROVIDERS: Emergency Provider Nurse Practitioner Family; PCP Internal Medicine Adolescent Medicine
DX: J20.9 Acute bronchitis, unspecified (principal)
CPT/HCPCS: 96372; 99212; G0463; J0696

== ENCOUNTER 2022-05-16 13:02 | Emergency (ER) | payer MEDICARE, SELFPAY ==
[2022-05-16 13:40] VITALS: BP 180/90; PULSE 80; RESP 20; TEMP 36.8; O2SAT 96; BMI 35.9
--- NOTE | 2022-05-16 13:40 | EXP.UTC ---
Discharge Plan Disposition Patient Disposition: Home, Self-Care Condition: Good Prescriptions Prescriptions: New benzonatate [benzonatate] 100 mg capsule 100 mg PO TIDP PRN (Reason: Cough) Qty: 30 0RF methylprednisolone 4 mg Tablets,Dose Pack 4 mg PO DIRECTED Qty: 21 0RF cefdinir 300 mg capsule 300 mg PO BID Qty: 20 0RF Discontinued benzonatate [benzonatate] 100 mg capsule 100 mg PO TIDP PRN (Reason: Cough) Qty: 30 0RF methylprednisolone 4 mg Tablets,Dose Pack 4 mg PO DIRECTED Qty: 21 0RF amoxicillin-pot clavulanate 500-125 mg tablet 1 tab PO BID Qty: 20 0RF No Action omeprazole 40 mg capsule,delayed release(DR/EC) 40 mg PO DAILY levothyroxine [Euthyrox] 50 mcg tablet 50 mcg PO DAILY albuterol sulfate 90 mcg/actuation HFA aerosol inhaler 1 inh inhalation QID PRN (Reason: shortness of breath or wheezing) Qty: 8.5 6RF budesonide-formoterol [Symbicort] 160-4.5 mcg/actuation HFA aerosol inhaler 2 puff inhalation BID 90 Days Qty: 10.2 3RF azelastine 137 mcg (0.1 %) aerosol,spray 2 spray intranasal BID 90 Days Qty: 30 3RF Rx Instructions: administer into each nostril ipratropium-albuterol 0.5 mg-3 mg(2.5 mg base)/3 mL solution for nebulization 3 ml inhalation Q6H PRN (Reason: shortness of breath or wheezing) Qty: 180 3RF levothyroxine 100 MCG tablet 100 mg PO DAILY escitalopram oxalate 20 MG tablet 20 mg PO DAILY losartan-hydrochlorothiazide 1 EACH tablet 1 each PO DAILY famotidine 20 MG tablet 20 mg PO TID diclofenac sodium 75 MG tablet,delayed release (DR/EC) 75 mg PO BID furosemide 20 MG tablet 20 mg PO DAILY gabapentin 100 MG capsule 300 mg PO QID rosuvastatin 5 MG tablet 5 mg PO DAILY budesonide-formoterol 10.2 GM HFA aerosol inhaler 10.2 gm IH DAILY Referrals Follow up/Referrals: Kaylee Krueger APRN [Primary Care Provider] - See instructions Activity Restrictions/Add. Instructions Additional Instructions/Restrictions: Drink plenty of fluids. Take tylenol or ibuprofen for pain or fever. Take the medications as directed. Follow up with your regular doctor. GO TO THE ER FOR ANY WORSENING SYMPTOMS Don't start the oral steroids until tomorrow, since you had the shot here today. Clinical Impressions Clinical Impression: Sinusitis, Pharyngitis Instructions Patient Instructions: DI for Pharyngitis/Tonsillopharyngitis -- Adult, DI for Sinusitis Discharge ED Provider: Ravi Manzanares [facility] HPI General Stated complaint: Sore throat, loss of voice, wheezing, drainage Time Seen by Provider: 05/16/22 13:40 History of Present Illness Provider Complaint: She states that for the past 1 week she has had cough, sinus congestion, sore throat. Her voice has been very hoarse also. Related Data Home Medications Medication Instructions Recorded Confirmed escitalopram oxalate 20 mg tablet 20 mg PO DAILY mood 09/20/17 04/19/22 levothyroxine 100 mcg tablet 100 mg PO DAILY thyroid 09/20/17 04/19/22 losartan 50 mg-hydrochlorothiazide 1 each PO DAILY blood pressure 09/20/18 04/19/22 12.5 mg tablet famotidine 20 mg tablet 20 mg PO TID stomach 04/21/19 04/19/22 budesonide-formoterol HFA 160 10.2 gm inhalation DAILY covid 12/08/21 04/19/22 mcg-4.5 mcg/actuation aerosol asthma inhaler diclofenac sodium 75 mg 75 mg PO BID Pain 12/08/21 04/19/22 tablet,delayed release furosemide 20 mg tablet 20 mg PO DAILY Edema 12/08/21 04/19/22 gabapentin 100 mg capsule 300 mg PO QID Pain 12/08/21 04/19/22 rosuvastatin 5 mg tablet 5 mg PO DAILY Cholesterol 12/08/21 04/19/22 levothyroxine 50 mcg tablet 50 mcg PO DAILY 03/27/22 04/19/22 (Euthyrox) omeprazole 40 mg capsule,delayed 40 mg PO DAILY 03/27/22 04/19/22 release Previous Rx's Medication Instructions Recorded albuterol sulfate 90 mcg/actuation 1 inh inhalation QID PRN shortness 03/27/22 aerosol inhaler
[2022-05-16 14:09] LABS: UTC Strep Screen (Rapid) Negative (Negative)
[2022-05-16 15:13] VITALS: BP 180/90; PULSE 80; RESP 20; TEMP 36.8; O2SAT 96
== END 2022-05-16 15:12 | disposition home or self-care (01) ==
PROVIDERS: Emergency Provider Nurse Practitioner Family; PCP Nurse Practitioner Family
DX: J32.9 Chronic sinusitis, unspecified (principal); J02.9 Acute pharyngitis, unspecified
CPT/HCPCS: 87880; 96372; 99212; 99213; G0463; J0696

== ENCOUNTER → 2022-06-05 15:23 | Outpatient (CLI) | payer MEDICARE, SELFPAY ==
[2022-06-05 16:17] LABS: Basophils % 0.6 % (0.1-2.0); Eosinophils # 0.2 K/mm3 (0.0-0.4); Eosinophils % 2.9 % (0.1-12.0); Hematocrit 40.6 % (37.0-47.0); Lymphocytes # 1.8 K/mm3 (0.7-4.5); Lymphocytes % 26.9 % (10-50); Mean Corpuscular Hemoglobin 30.2 pg (27.0-31.2); Mean Corpuscular Volume 94.5 fl (81-99); Mean Platelet Volume 7.9 fl (7.4-10.4); Monocytes # 0.3 K/mm3 (0.1-1.0); Monocytes % 5.1 % (1.7-9.3); Neutrophils # 4.3 K/mm3 (1.8-7.8); Neutrophils % 64.5 % (37.0-80.0); Platelet Count 327 K/mm3 (142-424); Red Cell Distribution Width 13.8 % (11.5-17.5); White Blood Count 6.7 K/mm3 (4.8-10.8)
[2022-06-05 17:01] LABS: Erythrocyte Sedimentation Rate 25 mm/hr (0-30)
[2022-06-05 17:35] LABS: Alanine Aminotransferase 20 U/L (12-78); Albumin Level 4.2 g/dl (3.5-5.0); Albumin/Globulin Ratio 1.6 (1.1-1.8); Alkaline Phosphatase 84 U/L (38-126); Anion Gap 10.3 mEq/L (5-15); Aspartate Amino Transferase 25 U/L (14-36); Bilirubin,Total 0.2 mg/dl (0.2-1.3); Blood Urea Nitrogen 25 mg/dl (7-17); Calcium 8.9 mg/dl (8.4-10.2); Carbon Dioxide 32 mmol/L (22.0-30.0); Chloride 105 mmol/L (98-107); Estimated Glomerular Filt Rate 72 ml/min (>60); GFR (African American) 87 ML/MIN (>60); Globulin 2.6 g/dL (1.3-3.2); Glucose 100 mg/dl (74-100); Potassium 4.3 mmoL/L (3.5-5.1); Sodium 143 mmol/L (136-145); Total Protein,Serum 6.8 g/dl (6.3-8.2)
[2022-06-05 17:41] LABS: C-Reactive Protein 6.1 mg/L (0-4)
[2022-06-07 20:55] LABS: QuantiFERON-TB Gold Plus Negative (Negative)
[2022-06-10 05:16] LABS: Hep A Ab, IgM Negative; Hepatitis B Core Antibody IgM Negative; Hepatitis B Surface Antigen Negative; Hepatitis C Antibody <0.1
== END ==
PROVIDERS: PCP Nurse Practitioner Family; Visit Provider Internal Medicine
DX: D89.9 Disorder involving the immune mechanism, unspecified (principal); L40.50 Arthropathic psoriasis, unspecified; R53.83 Other fatigue
CPT/HCPCS: 36415; 80053; 80074; 85025; 85651; 86140; 86480

== ENCOUNTER 2022-08-05 09:52 | Emergency (ER) | payer MEDICARE, SELFPAY ==
[2022-08-05 10:00] VITALS: BP 151/84; PULSE 74; RESP 20; TEMP 36.8; O2SAT 99; BMI 35.9
[2022-08-05 10:25] VITALS: BP 151/84; PULSE 74; RESP 20; TEMP 36.8; O2SAT 99
--- NOTE | 2022-08-05 10:33 | EXP.UTC ---
Discharge Plan Disposition Patient Disposition: Home, Self-Care Condition: Good Prescriptions Prescriptions: New amoxicillin-pot clavulanate [Augmentin] 500-125 mg tablet 1 tab PO BID 10 Days Qty: 20 0RF No Action omeprazole 40 mg capsule,delayed release(DR/EC) 40 mg PO DAILY levothyroxine [Euthyrox] 50 mcg tablet 50 mcg PO DAILY albuterol sulfate 90 mcg/actuation HFA aerosol inhaler 1 inh inhalation QID PRN (Reason: shortness of breath or wheezing) Qty: 8.5 6RF budesonide-formoterol [Symbicort] 160-4.5 mcg/actuation HFA aerosol inhaler 2 puff inhalation BID 90 Days Qty: 10.2 3RF azelastine 137 mcg (0.1 %) aerosol,spray 2 spray intranasal BID 90 Days Qty: 30 3RF Rx Instructions: administer into each nostril ipratropium-albuterol 0.5 mg-3 mg(2.5 mg base)/3 mL solution for nebulization 3 ml inhalation Q6H PRN (Reason: shortness of breath or wheezing) Qty: 180 3RF levothyroxine 100 MCG tablet 100 mg PO DAILY escitalopram oxalate 20 MG tablet 20 mg PO DAILY losartan-hydrochlorothiazide 1 EACH tablet 1 each PO DAILY benzonatate [benzonatate] 100 mg capsule 100 mg PO TIDP PRN (Reason: Cough) Qty: 30 0RF methylprednisolone 4 mg Tablets,Dose Pack 4 mg PO DIRECTED Qty: 21 0RF cefdinir 300 mg capsule 300 mg PO BID Qty: 20 0RF famotidine 20 MG tablet 20 mg PO TID diclofenac sodium 75 MG tablet,delayed release (DR/EC) 75 mg PO BID furosemide 20 MG tablet 20 mg PO DAILY gabapentin 100 MG capsule 300 mg PO QID rosuvastatin 5 MG tablet 5 mg PO DAILY budesonide-formoterol 10.2 GM HFA aerosol inhaler 10.2 gm IH DAILY Referrals Follow up/Referrals: Roger Maguire MD [Primary Care Provider] - See instructions Activity Restrictions/Add. Instructions Additional Instructions/Restrictions: Start antibiotic patient to take as ordered for a full length of time even if you feel better. Sinus infections do not get better overnight. It may take 2-3 days to notice much improvement so be sure to use conservative measures as discussed for symptoms. Flonase 1 spray each nostril daily to help with nasal congestion, sinus and ear pressure/information Increase fluids Humidifier/vaporizer as needed Tylenol and ibuprofen as needed for fever or pain. If symptoms do not improve or get worse return or be seen in the ER Follow-up with primary care this week Clinical Impressions Clinical Impression: Sinusitis Instructions Patient Instructions: DI for Sinusitis Discharge ED Provider: Basilio ([facility] [place] HPI General Stated complaint: ear pain Mode of Arrival: Ambulatory Source of Information: Patient Limitations: No Limitations Time Seen by Provider: 08/05/22 10:33 Description of Symptoms (Recalled from Triage Doc. by RN): PATIENT C/O COUGH, GREEN/YELLOW DRAINAGE, AND EAR PAIN (THIS AM) X 2 WEEKS HEENT Symptoms (Recalled from RN notes): No Resp Symptoms (Recalled from RN notes): No Skin Symptoms (Recalled from RN notes): No MS Symptoms (Recalled from RN notes): No Functional Status (Recalled from RN notes): WNL History of Present Illness Provider Complaint: 66 yr old female presents for thick dark green sputum, green nasal drainage and ear pain Related Data Home Medications Medication Instructions Recorded Confirmed escitalopram oxalate 20 mg tablet 20 mg PO DAILY mood 09/20/17 04/19/22 levothyroxine 100 mcg tablet 100 mg PO DAILY thyroid 09/20/17 04/19/22 losartan 50 mg-hydrochlorothiazide 1 each PO DAILY blood pressure 09/20/18 04/19/22 12.5 mg tablet famotidine 20 mg tablet 20 mg PO TID stomach 04/21/19 04/19/22 budesonide-formoterol HFA 160 10.2 gm inhalation DAILY covid 12/08/21 04/19/22 mcg-4.5 mcg/actuation aerosol asthma inhaler diclofenac sodium 75 mg 75 mg PO BID Pain 12/08/21 04/19/22 tablet,delayed release furosemide 20 mg tablet 20 mg PO DAILY Edema 12/08/21 04/19/22 gabapenti
== END 2022-08-05 11:03 | disposition home or self-care (01) ==
PROVIDERS: Emergency Provider Nurse Practitioner Family; PCP Internal Medicine Adolescent Medicine
DX: J01.90 Acute sinusitis, unspecified (principal)
CPT/HCPCS: 99212; 99214; G0463

== ENCOUNTER → 2022-09-09 10:36 | Outpatient (CLI) | payer MEDICARE, SELFPAY ==
[2022-09-09 10:51] LABS: Basophils % 0.4 % (0.1-2.0); Eosinophils # 0.2 K/mm3 (0.0-0.4); Eosinophils % 3.3 % (0.1-12.0); Hematocrit 42.2 % (37.0-47.0); Hemoglobin 13.5 g/dL (12.2-16.2); Lymphocytes % 30.2 % (10-50); Mean Corpuscular HGB Conc 31.9 g/dL (31.8-35.4); Mean Corpuscular Volume 93.9 fl (81-99); Monocytes # 0.4 K/mm3 (0.1-1.0); Monocytes % 5.5 % (1.7-9.3); Neutrophils % 60.6 % (37.0-80.0); Platelet Count 285 K/mm3 (142-424); Red Blood Count 4.49 M/mm3 (4.20-5.40); Red Cell Distribution Width 14.2 % (11.5-17.5); White Blood Count 6.7 K/mm3 (4.8-10.8)
[2022-09-09 11:20] LABS: Erythrocyte Sedimentation Rate 14 mm/hr (0-30)
[2022-09-09 11:41] LABS: Chloride 96 mmol/L (98-107); Potassium 4.7 mmoL/L (3.5-5.1); Sodium 142 mmol/L (136-145)
[2022-09-09 11:43] LABS: Alanine Aminotransferase 29 U/L (12-78); Aspartate Amino Transferase 33 U/L (14-36); Blood Urea Nitrogen 19 mg/dl (7-17); Estimated Glomerular Filt Rate 72 ml/min (>60); GFR (African American) 87 ML/MIN (>60)
[2022-09-09 11:44] LABS: Albumin Level 4.1 g/dl (3.5-5.0); Albumin/Globulin Ratio 1.6 (1.1-1.8); Alkaline Phosphatase 73 U/L (38-126); Anion Gap 16.7 mEq/L (5-15); Bilirubin,Total 0.6 mg/dl (0.2-1.3); Calcium 9.4 mg/dl (8.4-10.2); Carbon Dioxide 34 mmol/L (22.0-30.0); Globulin 2.5 g/dL (1.3-3.2); Glucose 75 mg/dl (74-100); Total Protein,Serum 6.6 g/dl (6.3-8.2)
[2022-09-09 11:49] LABS: C-Reactive Protein 2.1 mg/L (0-4)
== END ==
PROVIDERS: PCP Nurse Practitioner Family; Visit Provider Nurse Practitioner Family
DX: D89.9 Disorder involving the immune mechanism, unspecified (principal); L40.50 Arthropathic psoriasis, unspecified
CPT/HCPCS: 36415; 80053; 85025; 85651; 86140

== ENCOUNTER → 2022-09-21 15:38 | Outpatient (CLI) | payer MEDICARE, SELFPAY ==
[2022-09-21 17:36] LABS: Chol/HDL Ratio 2.4 (1-3.5); Cholesterol 160 mg/dl (140-200); HDL Cholesterol 66 mg/dl (40-60); Triglycerides 115 mg/dl (30-150); VLDL Cholesterol 23 mg/dL (0-40)
[2022-09-21 17:47] LABS: Direct LDL Cholesterol 78.13 mg/dL (100-129)
[2022-09-21 18:08] LABS: Thyroid Stimulating Hormone 0.67 uIU/mL (0.465-4.68)
== END ==
PROVIDERS: PCP Nurse Practitioner Family; Visit Provider Nurse Practitioner Family
DX: I10 Essential (primary) hypertension (principal); E03.9 Hypothyroidism, unspecified
CPT/HCPCS: 36415; 80061; 84443

== ENCOUNTER 2023-06-05 15:42 | Outpatient (CLI) | payer MEDICARE, SELFPAY ==
[2023-06-05 16:33] LABS: Basophils % 0.6 % (0.1-2.0); Eosinophils # 0.1 K/mm3 (0.0-0.4); Eosinophils % 1.2 % (0.1-12.0); Hematocrit 38.6 % (37.0-47.0); Hemoglobin 13.5 g/dL (12.2-16.2); Lymphocytes % 38.4 % (10-50); Mean Corpuscular Hemoglobin 32.9 pg (27.0-31.2); Monocytes # 0.4 K/mm3 (0.1-1.0); Monocytes % 5.7 % (1.7-9.3); Neutrophils # 4.2 K/mm3 (1.8-7.8); Neutrophils % 54.2 % (37.0-80.0); Platelet Count 296 K/mm3 (142-424); Red Blood Count 4.11 M/mm3 (4.20-5.40); White Blood Count 7.7 K/mm3 (4.8-10.8)
[2023-06-05 16:51] LABS: Chloride 101 mmol/L (98-107); Sodium 138 mmol/L (136-145)
[2023-06-05 16:54] LABS: Alanine Aminotransferase 21 U/L (12-78); Albumin Level 4.1 g/dl (3.5-5.0); Albumin/Globulin Ratio 1.5 (1.1-1.8); Alkaline Phosphatase 80 U/L (38-126); Anion Gap 9.5 mEq/L (5-15); Aspartate Amino Transferase 26 U/L (14-36); Bilirubin,Total 0.5 mg/dl (0.2-1.3); Blood Urea Nitrogen 25 mg/dl (7-17); Calcium 9.3 mg/dl (8.4-10.2); Carbon Dioxide 32 mmol/L (22.0-30.0); Estimated Glomerular Filt Rate 72 ml/min (>60); GFR (African American) 87 ML/MIN (>60); Globulin 2.8 g/dL (1.3-3.2); Glucose 88 mg/dl (74-100); Potassium 4.5 mmoL/L (3.5-5.1); Total Protein,Serum 6.9 g/dl (6.3-8.2)
[2023-06-05 17:01] LABS: C-Reactive Protein 1.5 mg/L (0-4)
[2023-06-05 17:04] LABS: Erythrocyte Sedimentation Rate 19 mm/hr (0-30)
[2023-06-06 08:07] LABS: HBsAg Screen Negative (Negative); HCV Ab Non Reactive (Non Reactive); Hep A Ab, IGM Negative (Negative); Hep B Core Ab, IgM Negative (Negative)
[2023-06-08 05:12] LABS: QuantiFERON-TB Gold Plus Negative (Negative)
== END 2023-06-05 23:59 ==
LOC: LAB 15:43
PROVIDERS: PCP Nurse Practitioner Family; Visit Provider Internal Medicine
DX: D84.821 Immunodeficiency due to drugs (principal); L40.50 Arthropathic psoriasis, unspecified; R53.83 Other fatigue; D89.9 Disorder involving the immune mechanism, unspecified; Z51.81 Encounter for therapeutic drug level monitoring; Z79.1 Long term (current) use of non-steroidal anti-inflammatories (NSAID); Z11.1 Encounter for screening for respiratory tuberculosis
CPT/HCPCS: 36415; 80053; 80074; 85025; 85651; 86140; 86480

== ENCOUNTER 2023-09-17 16:10 | Outpatient (CLI) | payer MEDICARE, SELFPAY ==
--- NOTE | 2023-09-17 16:16 | XR_ITS ---
FINAL REPORT CLINICAL HISTORY: foot pain FINDINGS: LEFT FOOT Three views of the left foot demonstrate no acute fracture or dislocation. There are mild and moderate degenerative changes. Calcaneal spurs are noted. The visualized joint spaces are normally aligned. The soft tissues are unremarkable. IMPRESSION: No acute bony abnormality. Reviewed, Interpreted and Dictated by Amado Wheatley III, MD Transcribed by Pat Elizabeth Authenticated and [facility]
== END 2023-09-17 23:59 | disposition home or self-care (01) ==
LOC: RAD 16:13
PROVIDERS: PCP Nurse Practitioner Family; Visit Provider Nurse Practitioner
DX: M79.672 Pain in left foot (principal)
CPT/HCPCS: 73630

== ENCOUNTER 2023-11-22 14:37 | Outpatient (CLI) | payer MEDICARE, SELFPAY ==
[2023-11-22 15:13] LABS: Basophils # 0.1 K/mm3 (0-0.2); Eosinophils # 0.2 K/mm3 (0.0-0.4); Hematocrit 37.4 % (37.0-47.0); Hemoglobin 14.2 g/dL (12.2-16.2); Lymphocytes # 2.9 K/mm3 (0.7-4.5); Lymphocytes % 38.8 % (10-50); Mean Corpuscular HGB Conc 37.9 g/dL (31.8-35.4); Mean Corpuscular Hemoglobin 36.5 pg (27.0-31.2); Mean Corpuscular Volume 96.2 fl (81-99); Monocytes # 0.4 K/mm3 (0.1-1.0); Monocytes % 4.7 % (1.7-9.3); Neutrophils % 53.4 % (37.0-80.0); Platelet Count 234 K/mm3 (142-424); Red Blood Count 3.89 M/mm3 (4.20-5.40); Red Cell Distribution Width 14.3 % (11.5-17.5); White Blood Count 7.4 K/mm3 (4.8-10.8)
[2023-11-22 15:39] LABS: Alanine Aminotransferase 19 U/L (12-78); Albumin Level 4.2 g/dl (3.5-5.0); Albumin/Globulin Ratio 1.6 (1.1-1.8); Alkaline Phosphatase 71 U/L (38-126); Anion Gap 10.3 mEq/L (5-15); Aspartate Amino Transferase 27 U/L (14-36); Bilirubin,Total 0.4 mg/dl (0.2-1.3); Blood Urea Nitrogen 28 mg/dl (7-17); Calcium 9.7 mg/dl (8.4-10.2); Carbon Dioxide 31 mmol/L (22.0-30.0); Chloride 105 mmol/L (98-107); Estimated Glomerular Filt Rate 72 ml/min (>60); GFR (African American) 87 ML/MIN (>60); Globulin 2.6 g/dL (1.3-3.2); Glucose 96 mg/dl (74-100); Potassium 4.3 mmoL/L (3.5-5.1); Sodium 142 mmol/L (136-145); Total Protein,Serum 6.8 g/dl (6.3-8.2)
[2023-11-22 15:45] LABS: C-Reactive Protein 1.3 mg/L (0-4)
[2023-11-22 15:52] LABS: Erythrocyte Sedimentation Rate 15 mm/hr (0-30)
== END 2023-11-22 23:59 | disposition home or self-care (01) ==
LOC: LAB 14:40
PROVIDERS: PCP Nurse Practitioner Family; Visit Provider Internal Medicine
DX: L40.50 Arthropathic psoriasis, unspecified (principal); Z79.899 Other long term (current) drug therapy
CPT/HCPCS: 36415; 80053; 85025; 85651; 86140

== ENCOUNTER → 2023-12-25 08:11 | Day surgery (SDC) | payer MEDICARE, SELFPAY ==
[2023-12-20 12:50] VITALS: BMI 37.1
[2023-12-25 08:23] VITALS: BP 147/95; PULSE 74; RESP 18; TEMP 36.3; O2SAT 96
[2023-12-25] MEDS: LACTATED RINGERS 1000ML 1,000 ML 25 ML IV (08:28)
--- NOTE | 2023-12-25 08:40 | EXP.ANES.CKL ---
[facility] Disclaimer: The information contained in this section may have been updated after the patient was seen, as this information can be updated by other users. Medical History Arthritis HLD (hyperlipidemia) HTN (hypertension) Allergic rhinitis, unspecified Eosinophilia Asthma Dyspnea on exertion Mild persistent reactive airway disease without complication Post viral RAD (reactive airway disease) History of 2019 novel coronavirus disease (COVID-19) Surgical History History of total hysterectomy History of esophagogastroduodenoscopy (EGD) History of section History of colon resection History of colonoscopy Family History Other Alcoholism Cancer Coronary artery disease FHx: mental illness Heart attack Hyperlipidemia Hypertension Stroke Social History Smoking Status: Never smoker second hand exposure: No alcohol intake: never substance use type: denies use current occupational status: employed Travel in the last 8 weeks: None household members: none housing: house current occupational exposures/hazards: No caffeine: No H Anesthesia Checklist Patient Identification Patient Identification: Arm Band and Verbal (Name & ) Structural Data Admitted From: Home Planned Operative Procedure/s: Colonoscopy Consent for Planned Operative Procedure(s) Verified: Yes Verified Documents: Surgical Consent and History and Physical NPO Status Verified Time NPO: 00:00 Additional verifications Anesthesia Reactions: No Hx Blood Transfusions: No Blood Transfusion Reaction: No Airway Assessment Mallampati Score:: Class II C-Spine Mobility Assessed: Yes TMJ Mobility Assessed: Yes Dentition: Good Dentition Neurological Assessment Level of Consciousness: Awake Hx Seizures: No Numbness or tingling in extremities: No Anesthesia Plan Anesthesia Risk discussed: Yes Anesthesia Plan: Verified ASA Class: II Anesthesia Type: MAC
--- NOTE | 2023-12-25 08:48 | HMH.SCOPE ---
Procedure: Date: 12/25/23 Patient Date of :: 1955 Procedure Performed:: Colonoscopy with polypectomy Indications:: Screening Performing Provider:: Dario Chavez MD Referring Provider:: . Sedation:: Monitored anesthesia care Procedure:: After informed consent was obtained the patient was taken to the endoscopy suite. Sedation ensued after the patient was transferred to the left lateral decubitus position. Pulse, blood pressure, and oxygen saturation were monitored throughout the procedure. Digital rectal exam revealed no significant abnormality. The colonoscope was placed in position. The entire colon was evaluated. The colonoscope was carefully removed and the patient was transferred to recovery in stable condition. Please see findings and specimens below for detail. Findings:: Bowel preparation moderate to poor Moderate tortuosity Fairly profound lack of relaxation/spasticity Hemorrhoidal tag/cushions Lobulated sessile transverse colon polyps (adjacent) Specimens:: Adjacent lobulated sessile transverse colon polyps (cold snare and cold biopsy forceps Recommendations:: Timing of repeat colonoscopy is pending pathology will likely be around 1-2 years with alternate/extended bowel preparation secondary to moderate to poor bowel preparation, tortuosity, and spasticity/lack of relaxation. Consider gastroenterology evaluation secondary to alternating diarrhea/constipation. Next colonoscopy likely deferred to the gastroenterology service. Complications:: No immediate Estimated blood obtained (mL): 1 Colonoscopy Component Colonoscopy Component Was a colonoscopy performed during today's procedure?: Yes Recommended follow up colonoscopy of at least 10 years?: No If no, follow up colonoscopy recommended in ___ years?: (See above) Reason for not recommending >/= 10 yr follow-up interval?: (See above)
[2023-12-25 08:50] VITALS: O2SAT 96
[2023-12-25 09:22] VITALS: BP 115/47; PULSE 68; RESP 16; TEMP 36.2; O2SAT 96
[2023-12-25 09:32] VITALS: BP 120/60; PULSE 69; RESP 16; TEMP 36.2; O2SAT 94
[2023-12-25 09:42] VITALS: BP 141/70; PULSE 69; RESP 16; TEMP 36.2; O2SAT 96
[2023-12-25 09:52] VITALS: BP 138/69; PULSE 64; RESP 16; TEMP 36.2; O2SAT 98
== END | disposition home or self-care (01) ==
PROVIDERS: PCP Internal Medicine Adolescent Medicine; Visit Provider Surgery
PROC: 0DJD8ZZ Inspection of Lower Intestinal Tract, Via Natural or Artificial Opening Endoscopic (ICD-10-PCS; CPT 45378; principal; 2023-12-25 09:30)
DX: Z12.11 Encounter for screening for malignant neoplasm of colon (principal); K64.9 Unspecified hemorrhoids; D12.3 Benign neoplasm of transverse colon
CPT/HCPCS: 45385; J7120

== ENCOUNTER 2024-06-09 12:33 | Outpatient (CLI) | payer MEDICARE, SELFPAY ==
--- NOTE | 2024-06-09 12:43 | XR_ITS ---
FINAL REPORT CLINICAL HISTORY: ACUTE PAIN LT KNEE FINDINGS: LEFT KNEE 3 views of the left knee were obtained. There is no acute fracture or dislocation. Visualized joint spaces are normally aligned. Soft tissues are unremarkable. IMPRESSION: No acute bony abnormality. Reviewed, Interpreted and Dictated by Bryn Gonzalez MD Transcribed by Pat Elizabeth Authenticated and [facility]
== END 2024-06-09 23:59 | disposition home or self-care (01) ==
LOC: RAD 12:35
PROVIDERS: PCP Nurse Practitioner Family; Visit Provider Nurse Practitioner Family
DX: M25.562 Pain in left knee (principal)
CPT/HCPCS: 73562

== ENCOUNTER 2024-06-17 07:10 | Outpatient (CLI) | payer MEDICARE, SELFPAY ==
--- NOTE | 2024-06-17 07:14 | MR_ITS ---
FINAL REPORT TECHNIQUE: Multiplanar MR without contrast CLINICAL HISTORY: MEDIAL SIDED KNEE SWELLING. PATIENT FELL ON KNEE 1 MONTH AGO. COMPARISON: None FINDINGS: Articular cartilage: Moderate diffuse thinning of the articular cartilage is present. Marrow signal: Unremarkable Joint fluid: Small joint effusion Menisci: There is a complex tear of the posterior horn of the medial meniscus extending to the meniscal root. There is a truncated lateral meniscus body consistent with a small tear. Ligaments: There is severe attenuation of the anterior cruciate ligament consistent with a high-grade partial tear. There is nonvisualization of the posterior collateral ligament, consistent with a presumed chronic tear. The collateral and patellofemoral ligaments are intact. Tendons: Quadriceps and patellar tendon unremarkable There is significant gastrocnemius tendinopathy involving the medial and lateral heads with cystic degeneration at the femoral attachments. IMPRESSION: Severe attenuation of the anterior cruciate ligament consistent with a high-grade partial tear, and nonvisualization of the posterior cruciate ligament, presumed chronic tear. Complete tear posterior horn medial meniscus extending to the meniscal root, truncated lateral meniscus body consistent with a small tear. Moderate diffuse thinning of the cartilage. Reviewed, Interpreted and Dictated by Svetlana Combs MD Transcribed by Janina Omer Authenticated and [facility]
== END 2024-06-17 23:59 | disposition home or self-care (01) ==
LOC: RAD 07:11
PROVIDERS: PCP Nurse Practitioner Family; Visit Provider Nurse Practitioner Family
DX: M25.562 Pain in left knee (principal)
CPT/HCPCS: 73721

== ENCOUNTER 2024-06-26 10:18 | Day surgery (SDC) | payer MEDICARE, SELFPAY ==
--- NOTE | 2024-06-20 14:08 | SUR.PREOP ---
1406: VM left with call back number and arrival time.
[2024-06-24 14:45] VITALS: BMI 37.1
[2024-06-26 10:57] VITALS: BP 171/94; PULSE 82; RESP 18; TEMP 37; O2SAT 93
--- NOTE | 2024-06-26 12:31 | EXP.ANES.CKL ---
[facility] Disclaimer: The information contained in this section may have been updated after the patient was seen, as this information can be updated by other users. Medical History Arthritis HLD (hyperlipidemia) HTN (hypertension) Allergic rhinitis, unspecified Eosinophilia Asthma Dyspnea on exertion Mild persistent reactive airway disease without complication Post viral RAD (reactive airway disease) History of 2019 novel coronavirus disease (COVID-19) Surgical History Previous back surgery History of total hysterectomy History of esophagogastroduodenoscopy (EGD) History of section History of colon resection History of colonoscopy Family History Other Alcoholism Cancer Coronary artery disease FHx: mental illness Heart attack Hyperlipidemia Hypertension Stroke Social History Smoking Status: Never smoker second hand exposure: No alcohol intake: never substance use type: denies use current occupational status: employed Travel in the last 8 weeks: None household members: none housing: house current occupational exposures/hazards: No caffeine: Yes Have you lived/traveled outside [place] in past 30 days?: No Contact w/someone who lives/traveled outside US past 30 days?: No Exposure to someone with infectious disease in past 14 days?: No Do you have a fever (greater than 100.4 F or 38 C)?: No Have you tested positive for COVID-19: No Exposed to someone with COVID-19 in past 14 days?: No Do you have a sore throat?: No Do you have a cough?: No Do you have any weakness?: No Do you have any diarrhea?: No Are you experiencing any unusual bleeding?: No Do you have any muscle aches/pain?: No Do you have any abdominal pain?: No Are you experiencing loss of taste or smell?: No [facility] Anesthesia Checklist Patient Identification Patient Identification: Arm Band Structural Data Admitted From: Home Planned Operative Procedure/s: Colonoscopy Consent for Planned Operative Procedure(s) Verified: Yes Verified Documents: Surgical Consent and History and Physical NPO Status Verified Time NPO: 09:30 Additional verifications Anesthesia Reactions: No Hx Blood Transfusions: No Blood Transfusion Reaction: No Airway Assessment Mallampati Score:: Class II C-Spine Mobility Assessed: Yes TMJ Mobility Assessed: Yes Dentition: Good Dentition Neurological Assessment Level of Consciousness: Awake, Alert and Appropriate Anesthesia Plan Anesthesia Risk discussed: Yes Anesthesia Plan: Verified ASA Class: III Anesthesia Type: MAC
--- NOTE | 2024-06-26 12:57 | EXP.HP ---
History of Present Illness *Admission Date: 06/26/24 *Reason for visit:: Personal history of colon polyps *History of present illness: Mrs. Jensen is a 68-year-old female who is here for surveillance colonoscopy secondary to a personal history of adenomatous colon polyps. The examination is deemed medically necessary for surveillance colonoscopy. The patient has been seen, interviewed and examined prior to the procedure by both myself and the anesthesia provider. [facility] Disclaimer: The information contained in this section may have been updated after the patient was seen, as this information can be updated by other users. Medical History Arthritis HLD (hyperlipidemia) HTN (hypertension) Allergic rhinitis, unspecified Eosinophilia Asthma Dyspnea on exertion Mild persistent reactive airway disease without complication Post viral RAD (reactive airway disease) History of 2019 novel coronavirus disease (COVID-19) Surgical History Previous back surgery History of total hysterectomy History of esophagogastroduodenoscopy (EGD) History of section History of colon resection History of colonoscopy Family History Other Alcoholism Cancer Coronary artery disease FHx: mental illness Heart attack Hyperlipidemia Hypertension Stroke Social History Smoking Status: Never smoker second hand exposure: No alcohol intake: never substance use type: denies use current occupational status: employed Travel in the last 8 weeks: None household members: none housing: house current occupational exposures/hazards: No caffeine: Yes Have you lived/traveled outside US in past 30 days?: No Contact w/someone who lives/traveled outside US past 30 days?: No Exposure to someone with infectious disease in past 14 days?: No Do you have a fever (greater than 100.4 F or 38 C)?: No Have you tested positive for COVID-19: No Exposed to someone with COVID-19 in past 14 days?: No Do you have a sore throat?: No Do you have a cough?: No Do you have any weakness?: No Do you have any diarrhea?: No Are you experiencing any unusual bleeding?: No Do you have any muscle aches/pain?: No Do you have any abdominal pain?: No Are you experiencing loss of taste or smell?: No Other Medical History Have you received the Flu Vaccine for this season: Yes Have you received the Pneumonia Vaccine: No Review of Systems Review of Systems Review of systems (narrative): Negative *Cardiovascular Comments: Negative *Gastrointestinal Comments: Negative *Genitourinary Comments: Negative *Musculoskeletal Comments: Negative *Neurologic Comments: Negative Meds Home Medications and Allergies Home Medications ?Medication ?Instructions ?Recorded ?Confirmed ?Type furosemide 20 mg tablet 20 mg PO DAILY Edema 12/08/21 06/24/24 History gabapentin 100 mg capsule 900 mg PO HS Pain 12/08/21 06/24/24 History rosuvastatin 5 mg tablet 5 mg PO DAILY Cholesterol 12/08/21 06/24/24 History albuterol sulfate 90 mcg/actuation 1 inh inhalation QID PRN shortness 03/27/22 06/24/24 Rx aerosol inhaler of breath or wheezing #8.5 grams ipratropium 0.5 mg-albuterol 3 mg 3 ml inhalation Q6H PRN shortness 03/27/22 06/24/24 Rx (2.5 mg base)/3 mL nebulization of breath or wheezing #180 mL soln levothyroxine 50 mcg tablet 50 mcg PO DAILY 03/27/22 06/24/24 History (Euthyrox) omeprazole 40 mg capsule,delayed 40 mg PO DAILY 03/27/22 06/24/24 History release losartan 100 mg tablet 100 mg PO DAILY 01/11/24 06/24/24 History sod picosulf 10 mg-magnes 3.5 175 ml PO DAILY 2 doses #350 mL 05/06/24 06/26/24 Rx gram-citric 12 gram/175 mL oral solution (Clenpiq) sertraline 50 mg tablet 100 mg PO DAILY 05/09/24 06/24/24 History New Prescriptions to Start Prescriptions: Allergies Allergy/AdvReac Type Severity Reaction Status Date / Time No Known Allergies Allergy Verified 06/26/24 10:56 Exam Data for Last 24 hours Vital signs and Labs for Last 24 Hours: Temp Pulse Resp BP Pulse Ox O2 Del Method 98.6 F 82 18 171/94 H 93 L Room Air 06/26/24 10:57 06/26/24 10:57 06/26/24 10:57 06/26/24 10:57 06/26/24 10:57 06/26/24 10:57 I & O for Last 24 hours: Intake & Output 06/23/24 06/24/24 06/25/24 06/26/24 23:59 23:59 23:59 23:59 Weight 230 lb *Routine HEENT Exam Head: Present normocephalic Eye: Present EOMI and PERRL ENT: Present mucous membranes moist *Routine Neck Exam Neck: Present supple *Routine Respiratory Exam Respiratory: Present CTA bilaterally *Routine Cardiovascular Exam Cardiovascular: Present RRR *Routine Abdominal Exam Abdominal: Present soft and normoactive bowel sounds; Absent tenderness *Routine Rectal Exam Rectal:: deferred *Routine Genitalia Exam Genitalia:: deferred *Routine Extremities Exam Extremities: Absent cyanosis, clubbing or edema *Routine Skin Exam Skin: Present warm; Absent rash *Routine Neurological Exam Neurological: Present alert and oriented X3 Assessment and Plan *Assessment and plan (1) Personal history of adenomatous and serrated colon polyps: Status: Acute Category: Medical Code(s): Z86.0101 - Personal history of adenomatous and serrated colon polyps (2) Alternating constipation and diarrhea: Status: Acute Category: Medical Code(s): R19.8 - Other specified symptoms and signs involving the digestive system and abdomen Plan A/P: 1. Personal history of adenomatous colon polyps is the preprocedural diagnosis. The patient will be anesthetized/sedated using MAC sedation. The patient has been seen and examined. Cardiac and lung assessment prior to the examination is stable. Proceed with planned surveillance colonoscopy
--- NOTE | 2024-06-26 12:59 | P.PCN_ITS ---
[facility] Procedure Note Date: 06/26/24 Time: 13:20 Procedure Note:: Colonoscopy Procedure Report: Colonoscopy with cold snare polypectomy Endoscopist: Ru Parmar II, MD Referring physician: SEA Arboleda Date of Procedure: June 26, 2024 Equipment: Olympus 190 variable stiffness pediatric colonoscope Sedation: MAC sedation Indication: Mrs. Jensen is a 68-year-old female who is here surveillance colonoscopy secondary to a personal history of colon polyps. The patient did h ave an unsuccessful colonoscopy by Dr. Dario Chavez M.D. in December 2023. At that time he was not able to complete the colonoscopy to the cecum. There were adjacent sessile transverse colon polyps which were serrated adenomas x 2. The colonoscopy was not complete for 2 reasons because of tortuosity/spasticity/looping but also poor bowel preparation. The patient did have prior presumed small bowel obstruction in 2014 secondary to adhesions from prior hysterectomy. The patient does report alternating irritable bowel syndrome with constipation alternating with diarrhea. She will go up to 3 days and sometimes 4 days without a bowel movement and then have diarrhea, urgency and sometimes a blowout. She will occasionally have fecal urgency with fecal incontinence. She did have lower back surgery and gets a twinge of burning and sometimes intense burning in her back when she needs to have a bowel movement. She does report incomplete defecation with excessive wiping. She reports no bright red rectal bleeding but has had some mild weight loss. She has had difficulties with her bowels since she was a child and used to use castor oil. She was not on any specific bowel regimen presently but had taken MiraLAX in the remote past. I had recommended combined MiraLAX plus Konsyl while she was in the office in February 2024. If she takes this 3 times weekly she has more regulated bowel function. The patient does eat primarily vegetables and is not much of a meat eater. She does eat greens/beans and greens that contain raffinose. Procedure: Prior to the procedure, a history and physical exam was performed, and patient's medications and allergies were reviewed. The risks, benefits and alternatives of the sedation and procedure were discussed with the patient. All questions w ere answered and informed consent was obtained. The patient was brought to the procedure room. Patient identification and proposed procedure were verified by the physician and the nurse. The patient was placed in a left lateral decubitus position and the scope was passed under direct vision. Throughout the procedure, the patient's blood pressure, pulse, and oxygen saturations were monitored continuously. The colonoscopy was accomplished without difficulty. The patient tolerated the procedure well. Findings: On digital rectal examination there was normal rectal tone. There were no external hemorrhoids. The colonoscope was introduced through the anal canal to the rectum and advanced to the ileocolonic anastomosis. The scope was advanced a short distance into the ileum. The scope was withdrawn and the anastomotic site (ileocolonic anastomosis) was normal. There was a single 4 mm polyp in the ascending colon removed via cold snare polypectomy. The remaining ascending, transverse, descending, sigmoid and rectum were grossly normal. There were no mucosal abnormalities identified. Upon retroflexion within the rectum there were grade 1 internal hemorrhoids. The preparation was good throughout with Alta Preparation Score of 8 out of 9. The cecal time was 10 minutes. Impression: 1. Diminutive ascending colon polyp 2. Prior ileocolonic resection with normal appearing ileocolonic anastomosis 3. Grade 1 internal hemorrhoids Plan: I will follow-up the polyp histology and recommend repeat surveillance colonoscopy again in 7 years. I will discuss bowel management options.
[2024-06-26 13:09] VITALS: O2SAT 79
[2024-06-26 13:26] VITALS: BP 128/81; PULSE 69; RESP 18; TEMP 36.3; O2SAT 96
[2024-06-26 13:36] VITALS: BP 136/87; PULSE 69; RESP 16; O2SAT 95
[2024-06-26 13:46] VITALS: BP 149/92; PULSE 70; RESP 16; O2SAT 96
[2024-06-26 13:56] VITALS: BP 151/92; PULSE 70; RESP 16; O2SAT 96
== END 2024-06-26 14:09 | disposition home or self-care (01) ==
PROVIDERS: PCP Nurse Practitioner Family; Visit Provider Internal Medicine Gastroenterology
PROC: 0DJD8ZZ Inspection of Lower Intestinal Tract, Via Natural or Artificial Opening Endoscopic (ICD-10-PCS; CPT 45378; principal; 2024-06-26 13:00)
DX: K63.5 Polyp of colon (principal); K64.0 First degree hemorrhoids; Z86.0101 Personal history of adenomatous and serrated colon polyps; R19.8 Other specified symptoms and signs involving the digestive system and abdomen; K59.00 Constipation, unspecified; R19.7 Diarrhea, unspecified
CPT/HCPCS: 45385; 88305

== ENCOUNTER 2024-09-15 10:17 | Outpatient (CLI) | payer MEDICARE, SELFPAY ==
--- NOTE | 2024-09-15 10:19 | MM_ITS ---
PROCEDURE INFORMATION: Exam: MG Bilateral Screening 3D Mammography Exam date and time: 09/15/2024 10:23 AM Age: 68 years old Clinical indication: Screening examination TECHNIQUE: Imaging protocol: Bilateral Screening tomosynthesis and 2D mammography including computer-aided detection (CAD) when performed. COMPARISON: 1. MG MM DIG SCREENING MAMM BI W/CAD 03/29/2022 3:49 PM 2. MG MM DIG SCREENING MAMM BI W/CAD 03/16/2021 4:29 PM FINDINGS: MAMMOGRAPHY: Breast composition: The breasts are almost entirely fatty. Mass: None. Architectural distortion: None. Calcifications: No suspicious calcifications. Asymmetric density: None. Skin thickening: None. Axillary adenopathy: None. IMPRESSION: No mammographic evidence of malignancy. Annual screening is recommended unless otherwise clinically indicated. ASSESSMENT: BI-RADS Category 1: Negative.
== END 2024-09-15 23:59 | disposition home or self-care (01) ==
LOC: RAD 10:17
PROVIDERS: PCP Nurse Practitioner Family; Visit Provider Nurse Practitioner Family
DX: Z12.31 Encounter for screening mammogram for malignant neoplasm of breast (principal); R92.1 Mammographic calcification found on diagnostic imaging of breast
CPT/HCPCS: 77063; 77067

== ENCOUNTER → 2024-12-03 10:32 | Outpatient (CLI) | payer MEDICARE, SELFPAY ==
--- OUTSIDE RECORDS SUMMARY | 2024-12-11 10:34 | XMS_ITS | Clinical Summary ---
Author Organization Healthcare Address [address] [place] [address] Care Team Providers Care [facility] Drum Dyer Name Role Phone Roger Maguire MD Primary Care Provider + [phone] Family History Medical History Relation Name Comments [...] of Treatment Not on file Care Teams [facility] Relationship Specialty Start Date End Date Roger Maguire MD [address] [place] [id number] PCP - General 09/17/20
== END ==
LOC: SL 12-11 10:32
PROVIDERS: PCP Nurse Practitioner Family; Visit Provider Nurse Practitioner Family
DX: G47.33 Obstructive sleep apnea (adult) (pediatric) (principal); G47.36 Sleep related hypoventilation in conditions classified elsewhere; I10 Essential (primary) hypertension; E66.9 Obesity, unspecified; D89.9 Disorder involving the immune mechanism, unspecified; L40.50 Arthropathic psoriasis, unspecified; Z51.81 Encounter for therapeutic drug level monitoring; Z79.1 Long term (current) use of non-steroidal anti-inflammatories (NSAID)
CPT/HCPCS: G0399

== ENCOUNTER 2024-12-05 12:30 | Emergency (ER) | payer MEDICARE, SELFPAY ==
[2024-12-05 12:43] VITALS: BP 198/96; PULSE 71; RESP 17; TEMP 36.6; O2SAT 97; BMI 37.9
--- NOTE | 2024-12-05 12:44 | XR_ITS ---
FINAL REPORT CLINICAL HISTORY: chronic knee pain/new fall this am, medial pain HX of torn meniscus multiple times COMPARISON: None FINDINGS: AP, lateral and oblique views of the left knee were obtained. There is no prior exam for comparison. There is no acute osseous abnormality of the left knee. Degenerative joint disease is present. The soft tissues are normal. There is a small joint effusion. IMPRESSION: Degenerative change and a small joint effusion, with no acute osseous abnormality of the left knee. Reviewed, Interpreted and Dictated by Azeb Pelaez MD Transcribed by Janina Omer Authenticated and [facility]
--- OUTSIDE RECORDS SUMMARY | 2024-12-05 12:44 | XMS_ITS ---
Author Organization [facility] Address [address] [place] [address] Care Team Providers Care Director Advanced Name Role Phone Roger Maguire MD Primary Care Provider [phone] Rheumatology - External Fill Status:Enrolled (Active) Start date:10/10/2023 Enrollment date:11/14/2023 Current support & services provided:Benefits Investigation, Prior Authorization, External Pharmacy Dispensing Linked medications:Risankizumab-rzaa (Active) Linked problems:Psoriatic arthritis (Active) Overview Faxed provider portion to [employer] on 06/16/24, pending approval. Case Team Name Relationship Phone Yas Rosenberg Soils Technician Patient Ca re Dual Rate Dealer Teo Blanco Soils Technician Dual Rate Dealer Saturnino Mart PharmD Pharmacist [phone] Continued Care and Services Coordination
--- OUTSIDE RECORDS SUMMARY | 2024-12-05 12:44 | XMS_ITS | Clinical Summary ---
[facility] Address [address] [place] [address] Care Team Providers Care Wood Experimental Mechanic Name Role Phone Roger Maguire MD Primary Care Provider + [phone] Allergies No known active allergies Medications Polyethylene Glycol 3350 (MIRALAX PO) Take by mouth 2 (Two) Times a Day. Active Multiple Vitamins-Minera ls (MULTIVITAMIN ADULTS) tablet Take by mouth Daily. Active losartan (COZAAR) 100 MG tablet Take 1 tablet by mouth Daily. Active hydroCHLOROthia zide (HYDRODIURIL) 25 MG tablet Take 1 tablet by mouth Daily. Active acetaminophen (TYLENOL) 500 MG tablet Take 1 tablet by mouth 2 (Two) Times a Day As Needed for Mild Pain. Active famotidine (PEPCID) 10 MG tablet Take 1 tablet by mouth 3 (Three) Times a Day. Active levothyroxine (SYNTHROID, LEVOTHROID) 50 MCG tablet Take 1 tablet by mouth Daily. Active gabapentin (NEURONTIN) 300 MG capsule Take 1 capsule by mouth 3 (Three) Times a Day. Active escitalopram (LEXAPRO) 20 MG tablet Take 1 tablet by mouth Daily. Active docusate sodium (COLACE) 100 MG capsule Take 1 capsule by mouth Daily. Active oxyCODONE-aceta minophen (PERCOCET) 7.5-325 MG per tablet Take 1 tablet by mouth Every 6 (Six) Hours As Needed. 50 tablet 06/11/2019 12:27 PM EST 0 Active cyclobenzaprine (FLEXERIL) 10 MG tablet Take 1 tablet by mouth 3 (Three) Times a Day As Needed. 30 tablet 1 06/11/2019 12:27 PM EST 0 Active omeprazole (priLOSEC) 40 MG capsule Take 1 capsule by mouth Daily. Active furosemide (LASIX) 20 MG tablet Take 1 tablet by mouth Daily. Active rosuvastatin (CRESTOR) 5 MG tablet Take 1 tablet by mouth Daily. Active Risankizumab-rz aa (Skyrizi) 150 MG/ML solution prefilled syringe Inject 150 mg under the skin into the appropriate area as directed Every 3 (Three) Months. WEEKS 0 & 4 (LOADING DOSES) 1 mL 4 4 Active meloxicam (MOBIC) 7.5 MG tablet Take 1 tablet by mouth Daily. 4 Active Active Problems Problem Noted Date Diagnosed Date High risk medication use 11/14/2023 Assessment & Plan (11/14/2023 4:49 PM EDT): * Skyrizi 150 mg SQ injection every 12 weeks for psoriasis/psoriatic arthritis 1. Hold if the patient develops infection. 2. Avoid live vaccines while on this medication. 3. No recent serious infections 4. No injection site reactions. 5. Also hold this medication perioperatively if the patient is going to have a surgical procedure Current use of steroid medication 11/14/2023 Assessment & Plan (11/14/2023 4:52 PM EDT): Prednisone 5 mg/day for psoriatic arthritis Ideally she will taper off as her condition improves/stabilizes. Lumbar spondylosis 06/09/2019 Hypothyroidism 06/09/2019 Essential hypertension 06/09/2019 Psoriatic arthritis 06/09/2019 Assessment & Plan (11/14/2023 4:59 PM EDT): * Medications/treatments/interventions tried include: Duexis, Tumeric, Glucosamine, Lexapro, Humira, Arava, Enbrel, IV Simponi, SQ Orencia, Cosentyx, Skyrizi, Otezla, gabapentin, Tylenol, diclofenac 1. She is now on Skyrizi. 2. Check labs 3. We gave her an educational handout on psoriatic arthritis to take home and review 4. Follow up in 4-6 months 5. She is on prednisone. She is taking 5 mg/day. We will try and taper off. Anxiety and depression 06/09/2019 IBS (irritable bowel syndrome) 06/09/2019 Immunizations Immunization Administration Dates Next Due COVID-19 (PFIZER) 12YRS+ (COMIRNATY) 08/31/2020, 08/10/2020 COVID-19 (PFIZER) Purple Cap Monovalent 02/03/20 21,07/30/2020,07/07/2020 Covid-19 (Pfizer) Brito Cap Monovalent 11/28/2021 INFLUENZA SPLIT TRI 02/28/2017 Family History Medical History Relation Name Comments Psoriasis Daughter Heart disease Father Lung disease Father Arthritis Mother Hypertension Mother Osteoporosis Mother Arthritis Sister Osteoporosis Sister Anxiety disorder Son Depression Son Relation Name Status Comments Daughter Father Mother Sister Son Social History Tobacco Use Types Packs/Day Years Used Date Smoking Tobacco: Former Cigarettes Q uit: 1982 Smokeless Tobacco: Never Tobacco Cessation:Counseling Given: Not Answered Comments:quit 38 years ago Alcohol Use Standard Drinks/Week Comments Not Currently 0 (1 standard drink = 0.6 oz pur e alcohol) AUDIT-C Answer Date Recorded Frequency of Alcohol Consumption Never 06/03/2019 Average Number of Drinks Not on file 020 Frequency of Binge Drinking Not on file 05/08 Abuse Screen Answer Date Recorded Unsafe at Home or Work/School Not on file Feels Threatened by Someone? Not on file 04/2023 Does Anyone Keep You from Co ntacting Others or Doint Things Outside the Home? Not on file 02/15/2023 Physical Sign of Abuse Present Not on file 1 Housing Stability Answer Date Recorded Current Living Arrangements Not on file 02/04 Potentially Unsafe Housing Conditions Not on grace e 02/15/2023 Family and Community Support Answer Morales e Recorded Help with Day-to-Day Activities Not on file 02/15/2023 Lonely or Isolated Not on file 02/15/2023 Employment Answer Date Recorded Do you want help finding or keeping work or a kim b? Not on file 02/15/2023 Disabilities Answer Date Recorded Concentrating, Remembering, or Making Decisions Difficulty Not on file 02/15/2023 Doing Errands Independently Difficulty Not on fi le 02/15/2023 Education Answer Date Recorded Help with school or training? Not on file Preferred Language Not on file 02/15/2023 Comments No Sex and Gender Information Value Date Recorded Sex Assigned at Female 11/30/2023 1:19 PM EDT Legal Sex Female 10:24 AM EST Gender Identity Female 11/30/2023 1:19 PM EDT Sexual Orientation Straight 11/30/2023 1: 19 PM EDT Last Filed Vital Signs Vital Sign Reading Time Taken Comments Blood Pressure 140/60 11/14/2023 4:11 PM EDT Pulse 87 11/14/2023 4:11 PM EDT Temperature 36.4 C (97.6 F) 11/14/2023 4:11 PM EDT Respiratory Rate 14 06/11/2019 7:41 AM EST Oxygen Saturation 92% 06/11/2019 7:41 AM EST Inhaled Oxygen Concentration - - Weight 104 kg (229 lb) 11/14/2023 4:11 PM EDT Height 167.6 cm (5' 6 ) 11/14/2023 4:11 PM EDT Body Mass Index 36.96 11/14/2023 4:11 PM EDT Plan of Treatment Upcoming Encounters Date Type Department Care Team (Late st Contact Info) Description 01/01/2025 3:00 PM EDT Office Visit [facility] [address] [phone] Hillary Blackburn APRN [address] [facility] [address] [place] [address] Health Maintenance Due Date Last Done Comments DXA SCAN 1956 MAMMOGRAM 1996 COLOGUARD 2001 COLON CANCER SCREENING 5 YEA R SIGMOIDOSCOPY 2001 COLONOSCOPY 2001 COL[address]AL CANCER SCREENING 2001 CT COLONOGRAPHY 2001 FECAL OCCULT BLOOD TEST 2001 FIT Testing (1 year) 2001 ANNUAL WELLNESS VISIT 06/03/2019 HEPATITIS C SCREENING 06/03/2019 COVID-19 Vaccine (7 2023-2 5 season) 2024 11/28/2021, 02/02/2021, 08/31/2020, Additional history exists INFLUENZA VACCINE 02/04/2025 05/16/2023, 02/28/2017 TDAP/TD VACCINES (2 - Td or Tdap) 11/29/2031 022 Pneumococcal Vaccine 50+ Completed 05/16/2023, 09/04 ZOSTER VACCINE Completed 08/03/2023, 10/27/2022 Medical Devices Implanted Type Area Commercial Print Salesman Device Identifier Shelf Expiration Date Model / Serial / Lot Allogrft Bone Vivigen Celluar Matrx Formable 10cc - Sna - [id number] Implanted:Qty : 1 on 06/09/2019 by Ravi Ramachandran Jr., MD at [facility] Implant N/A: Spine Lumbar [facility] 04/06/2020 [id number] / NA / [id number] Cage Spine Ib Fusn Post Ui 8deg 11mm - Sna - [id number] Implanted:Qty : 1 on 06/09/2019 by Ravi Ramachandran Jr., MD at [facility] Implant N/A: Spine Lumbar DEPUY [employer]ES 07/04/2023 [id number] / NA / [id number] Cage Spine Plif Eit 8deg 12mm - [id number] Implanted:Qty : 1 on 06/09/2019 by Ravi Ramachandran Jr., MD at [facility] Implant N/A: Spine Lumbar DEPUY SYNTHES 11/04/2022 [id number] / / [id number] Scrw Scott Viper Fen Pa Ti 6x45mm - [id number] Implanted:Qty : 4 on 06/09/2019 by Ravi Ramachandran Jr., MD at [facility] Implant N/A: Spine Lumbar DEPUY SPINE [id number] / / NA Scrw Scott Viper Fen Pa Ti 7x40mm - [id number] Implanted:Qty : 1 on 06/09/2019 by Ravi Ramachandran Jr., MD at [facility] Implant N/A: Spine Lumbar DEPUY SPINE [id number] / / NA Scrw Scott Viper Fen Pa Ti 7x45mm - [id number] Implanted:Qty : 1 on 06/09/2019 by Ravi Ramachandran Jr., MD at [facility] Implant N/A: Spine Lumbar DEPUY SPINE [id number] / / NA David Pre Lordosed W/Line 5.5x60mm - [id number] Implanted:Qty : 2 on 06/09/2019 by Ravi Ramachandran Jr., MD at [facility] Implant N/A: Spine Lumbar DEPUY SPINE [id number] / / NA Scrw Viper [address] - [id number] Implanted:Qty : 6 on 06/09/2019 by Ravi Ramachandran Jr., MD at [facility] Implant N/A: Spine Lumbar DEPUY SPINE [id number] / / NA Insurance MEDICARE ADVANTAGE PPO Advance Directives Documents on File Type Date Recorded Patient Finishing Manager Expl anation LIVING WILL - SCAN 06/03/2019 11:32 AM [employer] ING WILL 05/29/2019 * CPR (Attempt to Resuscitate) (Latest Code Status on File) Date Activated Date Inactivated Comments 06/09/2019 8:05 PM 06/11/2019 4:49 PM Question Answer Comments Code Status (Patient has no pulse and is not breathing): CPR (Attempt to Resuscitate) Medical Interventions (Patie nt has pulse or is breathing): Full Care Teams Wood Experimental Mechanic Relationship Specialty Start Date End Date Roger Maguire MD [address] [facility] [address] [place] [address] PCP - General Adolescent Medicine 06/03/19
--- OUTSIDE RECORDS SUMMARY | 2024-12-05 12:44 | XMS_ITS | Clinical Summary ---
Author Organization Healthcare Address [address] [place] [address] Care Team Providers Care Police Lieutenant Precinct Name Role Phone Roger Maguire MD Primary Care Provider + [phone] Family History Medical History Relation Name Comments Stroke Father Depression Mother Hypertension Mother Relation Name Status Comments Father Mother Social History Tobacco Use Types Packs/Day Years Used Date Smoking Tobacco: Every Day Alcohol Use Standard Drinks/Week Comments No 0 (1 standard drink = 0.6 oz pur e alcohol) Comments Unknown Sex and Gender Information Value Date Recorded Sex Assigned at Not on file Legal Sex Female 7:33 PM EDT Gender Identity Not on file Sexual Orientation Not on file Last Filed Vital Signs Vital Sign Reading Time Taken Comments Blood Pressure 132/81 07/09/2017 10:52 AM EST Pulse 61 07/09/2017 10:52 AM EST Temperature 36.7 C (98 F) 07/09/2017 10:52 AM EST Respiratory Rate - - Oxygen Saturation - - Inhaled Oxygen Concentration - - Weight 90.3 kg (198 lb 15.8 oz) 018 10:52 AM EST Height 170.2 cm (5' 7 ) 07/09/2017 10:5 2 AM EST Body Mass Index 31.17 07/09/2017 10:52 AM EST Plan of Treatment Not on file Care Teams Police Lieutenant Precinct Relationship Specialty Start Date End Date Roger Maguire MD [address] [place] [address] PCP - General 09/17/20
--- NOTE | 2024-12-05 12:45 | [facility].EDGENADL ---
Discharge Plan Disposition Patient Disposition: Home, Self-Care Prescriptions Prescriptions: No Action omeprazole 40 mg capsule,delayed release(DR/EC) 40 mg PO DAILY levothyroxine [Euthyrox] 50 mcg tablet 50 mcg PO DAILY albuterol sulfate 90 mcg/actuation HFA aerosol inhaler 1 inh inhalation QID PRN (Reason: shortness of breath or wheezing) Qty: 8.5 6RF ipratropium-albuterol 0.5 mg-3 mg(2.5 mg base)/3 mL solution for nebulization 3 ml inhalation Q6H PRN (Reason: shortness of breath or wheezing) Qty: 180 3RF losartan 100 mg tablet 100 mg PO DAILY Skyrizi 150 mg/mL pen injector 150 mg SQ Q4W Rx Instructions: administer at weeks 0 and 4 of treatment Clenpiq 10 mg-3.5 gram- 12 gram/175 mL solution 175 ml PO DAILY Qty: 350 0RF Rx Instructions: take first dose at 5-9PM evening before colonoscopy; 2nd dose the next day approximately 5 hrs before colonoscopy furosemide 20 MG tablet 20 mg PO DAILY gabapentin 100 MG capsule 900 mg PO HS rosuvastatin 5 MG tablet 5 mg PO DAILY sertraline 50 mg tablet 100 mg PO DAILY Referrals Follow up/Referrals: Kaylee Krueger APRN [Primary Care Provider, Medical] - See instructions Activity Restrictions/Add. Instructions Additional Instructions/Restrictions: Today you were evaluated in the emergency department. Your chronic left knee pain will need follow-up with Dr. Sands next week, as we discussed, please call his office Sunday morning to obtain a follow-up appointment. Please wear the elastic brace that you have until he is able to see you. You may continue to take acetaminophen for pain. During today's visit, you are also hypertensive. As we discussed, please follow-up with your PCP, although you are asymptomatic with your high blood pressure at this time it is important that you get your blood pressure better controlled. Please return to the ED for any worsening of your condition. Clinical Impressions Clinical Impression: Chronic pain of left knee High blood pressure Qualifiers: Hypertension type: unspecified Qualified Code(s): I10 - Essential (primary) hypertension Instructions Patient Instructions: High Blood Pressure Print Language Print Language: Cymro Discharge ED Provider: Jagdeep Regalado Adult HPI <Shobha Ellsworth APRN - Last Filed: 12/05/24 17:28> General Chief complaint: Extremity Injury, Lower Stated complaint: left knee pain and swelling Time Seen by Provider: 12/05/24 12:34 History of Present Illness HPI narrative: patient is a 69-year-old female PMHx obesity, chronic left knee pain, chronic meniscus tears of left knee, sciatica, who presents to the ED after a fall occurred this morning. Patient states that her left knee gave out, fell onto her hardwood floors, landing on her left knee which also twisted outward. Related Data Home Medications ?Medication ?Instructions ?Recorded ?Confirmed furosemide 20 mg tablet 20 mg PO DAILY Edema 12/08/21 07/06/24 gabapentin 100 mg capsule 900 mg PO HS Pain 12/08/21 07/06/24 rosuvastatin 5 mg tablet 5 mg PO DAILY Cholesterol 12/08/21 07/06/24 levothyroxine 50 mcg tablet 50 mcg PO DAILY 03/27/22 07/06/24 (Euthyrox) omeprazole 40 mg capsule,delayed 40 mg PO DAILY 03/27/22 07/06/24 release losartan 100 mg tablet 100 mg PO DAILY 01/11/24 07/06/24 sertraline 50 mg tablet 100 mg PO DAILY 05/09/24 07/06/24 risankizumab-rzaa 150 mg/mL 150 mg SQ Q4W 07/06/24 07/06/24 subcutaneous pen injector (Skyrizi) Previous Rx's ?Medication ?Instructions ?Recorded albuterol sulfate 90 mcg/actuation 1 inh inhalation QID PRN shortness 03/27/22 aerosol inhaler of breath or wheezing #8.5 grams ipratropium 0.5 mg-albuterol 3 mg 3 ml inhalation Q6H PRN shortness 03/27/22 (2.5 mg base)/3 mL nebulization of breath or wheezing #180 mL soln sod picosulf 10 mg-magnes 3.5 175 ml PO DAILY 2 doses #350 mL 05/06/24 gram-citric 12 gram/175 mL oral solution (Clenpiq) Allergies Allergy/AdvReac Type Severity Reaction Status Date / Time No Known Allergies Allergy Verified 12/03/24 11:07 [facility] <Shobha Ellsworth APRN - Last Filed: 12/05/24 17:28> [facility], [facility] Disclaimer: The information contained in this section may have been updated after the patient was seen, as this information can be updated by other users. Medical History Cellulitis Medication discussed with pharmacy will prescribe Clindamycin 300mg Q 8hr x 5 days Arthritis HLD (hyperlipidemia) HTN (hypertension) Allergic rhinitis, unspecified Eosinophilia Asthma Dyspnea on exertion Mild persistent reactive airway disease without complication Post viral RAD (reactive airway disease) History of 2019 novel coronavirus disease (COVID-19) Surgical History Previous back surgery L4-5 cage placement History of total hysterectomy History of esophagogastroduodenoscopy (EGD) History of section History of colon resection History of colonoscopy Family History Other Alcoholism Cancer Coronary artery disease FHx: mental illness Heart attack Hyperlipidemia Hypertension Stroke Social History Smoking Status: Never smoker second hand exposure: No alcohol intake: never substance use type: denies use current occupational status: employed Travel in the last 8 weeks?: None household members: none housing: house current occupational exposures/hazards: No caffeine: Yes Have you lived/traveled outside [place] in past 30 days?: No Contact w/someone who lives/traveled outside [place] past 30 days?: No Exposure to someone with infectious disease in past 14 days?: No Do you have a fever (greater than 100.4 F or 38 C)?: No Have you tested positive for COVID-19?: No Exposed to someone with COVID-19 in past 14 days?: No Do you have a sore throat?: No Do you have a cough?: No Do you have any weakness?: No Do you have any diarrhea?: No Are you experiencing any unusual bleeding?: No Do you have any muscle aches/pain?: No Do you have any abdominal pain?: No Are you experiencing loss of taste or smell?: No Other Medical History Have you received the Flu Vaccine for this season: Yes Have you received the Pneumonia Vaccine: No <Shobha Ellsworth APRN - Last Filed: 12/05/24 17:28> ROS Obtained: Yes Systems reviewed as appropriate & no additional complaints except as documented Physical Exam <Shobha Ellsworth APRN - Last Filed: 12/05/24 17:28> General General appearance: alert Head Head exam: atraumatic Neck Neck exam: Present full ROM Chest Chest inspection: Present symmetric chest wall rise Respiratory Respiratory exam: Absent respiratory distress Cardiovascular Cardiovascular exam: Present regular rate Extremities Exam Extremities exam: Present tenderness (left knee medial tenderness, patella midline, quadricep muscle intact) Neurological Exam Neurological exam: Present alert and oriented X3 Skin Skin exam: Present warm and dry Medical Decision Making <Shobha Ellsworth APRN - Last Filed: 12/05/24 17:28> Medical Records Screening: Per USPSTF and CDC recommendations, given the prevalence of disease in our region, it is our hospital?s policy to screen for HIV and viral Hepatitis for all patients aged 18 and over and those with ongoing risk factors. Alex Inquiry Pt receiving controlled substance: No Vital Signs: 12/05/24 12:43 12/05/24 14:45 Temperature 97.9 F 98.7 F Temperature Source Oral Oral Pulse Rate 78 Pulse Rate [Left] 71 Respiratory Rate 17 19 Blood Pressure 182/78 H Blood Pressure [Left Arm] 198/96 H Blood Pressure Mean [Left Arm] 130 Blood Pressure Source Automatic Cuff Blood Pressure Source [Left Arm] Automatic Cuff Blood Pressure Position Sitting Blood Pressure Position [Left Arm] Sitting 02 Sat by Pulse Oximetry 97 Oxygen Delivery Method Room Air Room Air Orders (Tests/Meds): ED MEDICATIONS Discontinued Medications Generic Name Dose Route Start Last Admin Trade Name Freq PRN Reason Stop Dose Admin Ketorolac Tromethamine 30 mg 12/05/24 12:44 12/05/24 12:52 Ketorolac 30mg/Ml Vial IM 12/05/24 12:45 30 mg ONCE ONE Administration ORDERS Category Date Time Status Knee XR left 3 views [XR knee LT 3V] Stat Exams 12/05/24 12:44 Completed Medical Decision Narrative: In summary, patient is a 69-year-old female PMHx obesity, chronic left knee pain, chronic meniscus tears of left knee, sciatica, who presents to the ED after a fall occurred this morning. Patient states that her left knee gave out, fell onto her hardwood floors, landing on her left knee which also twisted outward. Reports pain of 8/10. Patient states she has been ambulatory after the fall, denies hitting her head, denies loss of consciousness, denies back pain. She states that last Sunday she had a steroid injection in her left knee and has had some moderate burning sensation since then. She states that her first meniscus tear was back in the 1970s, she has never had this surgically repaired. States that she follows with Dr. Sands for orthopedic medicine. Denies fever, chills, body aches, headache, visual disturbances, neck pain, chest pain, shortness of breath. Differential diagnosis includes chronic knee pain, ligamentous injury, fracture, displacement, among others. Upon initial evaluation of patient she is alert, oriented and cooperative. She is currently hypertensive, states she did take her losartan 100 mg this morning however feels that her blood pressure is elevated due to her left knee pain. She states her baseline systolic pressure is 140. Physical exam remarkable for left knee medial tenderness, no posterior knee tenderness. Patient has range of motion, unable to fully extend left lower extremity. Patella midline, quadricep muscle intact. Distal pulses intact. Discussed with patient we will proceed with imaging of the left knee and pain medication. Patient is requesting that she not have oral pain medicine due to history of bowel resection. We discussed the use of Toradol, patient is agreeable to IM injection. Upon reassessment, patient states her pain has decreased to a 3/10. I discussed with her that in formal read of her knee appears to be [id number] however no acute abnormality. I discussed that she should continue to wear the elastic knee brace that she has with her for support. Advised her to call Dr. Sands's office Sunday for follow-up. Discussed that she will need to try to keep the knee mobile however obviously no heavy lifting or squatting. As far as her blood pressure, patient states that she has a lot of new stress at home, I discussed that since she is asymptomatic with her hypertension she can follow-up with her PCP for further evaluation. Patient called her PCP while in the room to make a follow-up appointment. We discussed very strict return precautions to the ED and patient verbalized understanding. <Jagdeep Regalado MD - Last Filed: 12/06/24 07:38> Vital Signs: 12/05/24 12:43 12/05/24 14:45 Temperature 97.9 F 98.7 F Temperature Source Oral Oral Pulse Rate 78 Pulse Rate [Left] 71 Respiratory Rate 17 19 Blood Pressure 182/78 H Blood Pressure [Left Arm] 198/96 H Blood Pressure Mean [Left Arm] 130 Blood Pressure Source Automatic Cuff Blood Pressure Source [Left Arm] Automatic Cuff Blood Pressure Position Sitting Blood Pressure Position [Left Arm] Sitting 02 Sat by Pulse Oximetry 97 Oxygen Delivery Method Room Air Room Air Orders (Tests/Meds): ED MEDICATIONS Discontinued Medications Generic Name Dose Route Start Last Admin Trade Name Zhang PRN Reason Stop Dose Admin Ketorolac Tromethamine 30 mg 12/05/24 12:44 12/05/24 12:52 Ketorolac 30mg/Ml Vial IM 12/05/24 12:45 30 mg ONCE ONE Administration ORDERS Category Date Time Status Knee XR left 3 views [XR knee LT 3V] Stat Exams 12/05/24 12:44 Completed Medical Decision Narrative: In summary, patient is a 69-year-old female PMHx obesity, chronic left knee pain, chronic meniscus tears of left knee, sciatica, who presents to the ED after a fall occurred this morning. Patient states that her left knee gave out, fell onto her hardwood floors, landing on her left knee which also twisted outward. Reports pain of 8/10. Patient states she has been ambulatory after the fall, denies hitting her head, denies loss of consciousness, denies back pain. She states that last Sunday she had a steroid injection in her left knee and has had some moderate burning sensation since then. She states that her first meniscus tear was back in the 1970s, she has never had this surgically repaired. States that she follows with Dr. Sands for orthopedic medicine. Denies fever, chills, body aches, headache, visual disturbances, neck pain, chest pain, shortness of breath. Differential diagnosis includes chronic knee pain, ligamentous injury, fracture, displacement, among others. Upon initial evaluation of patient she is alert, oriented and cooperative. She is currently hypertensive, states she did take her losartan 100 mg this morning however feels that her blood pressure is elevated due to her left knee pain. She states her baseline systolic pressure is 140. Physical exam remarkable for left knee medial tenderness, no posterior knee tenderness. Patient has range of motion, unable to fully extend left lower extremity. Patella midline, quadricep muscle intact. Distal pulses intact. Discussed with patient we will proceed with imaging of the left knee and pain medication. Patient is requesting that she not have oral pain medicine due to history of bowel resection. We discussed the use of Toradol, patient is agreeable to IM injection. Upon reassessment, patient states her pain has decreased to a 3/10. I discussed with her that in formal read of her knee appears to be [id number] however no acute abnormality. I discussed that she should continue to wear the elastic knee brace that she has with her for support. Advised her to call Dr. Sands's office Sunday morning for follow-up. Discussed that she will need to try to keep the knee mobile however obviously no heavy lifting or squatting. As far as her blood pressure, patient states that she has a lot of new stress at home, I discussed that since she is asymptomatic with her hypertension she can follow-up with her PCP for further evaluation. Patient called her PCP while in the room to make a follow-up appointment. We discussed very strict return precautions to the ED and patient verbalized understanding. I was consulted by the HARVINDER, and we discussed the complexity of the problems being addressed. I approve the treatment and management plan for this patient's care in the emergency department, thus performing a substantive portion of the medical decision making. Jagdeep Regalado MD Critical Care <Shobha Ellsworth APRN - Last Filed: 12/05/24 17:28> Critical Care Time Critical Care Time: No
[2024-12-05] MEDS: KETOROLAC 30MG/ML VIAL 30 MG IM (12:52)
[2024-12-05 14:45] VITALS: BP 182/78; PULSE 78; RESP 19; TEMP 37.1; O2SAT 97
== END 2024-12-05 14:47 | disposition home or self-care (01) ==
PROVIDERS: Emergency Provider Student in an Organized Health Care Education/Training Program; PCP Nurse Practitioner Family
DX: M25.562 Pain in left knee (principal); G89.29 Other chronic pain
CPT/HCPCS: 73562; 96372; 99283; J1885

== ENCOUNTER 2025-01-09 15:07 | Outpatient (RCR) | payer MEDICARE, SELFPAY | END 2025-01-09 23:59 | disposition home or self-care (01) | LOC: OT 15:07 | PROVIDERS: PCP Nurse Practitioner Family; Visit Provider Nurse Practitioner Family | DX: G89.29 Other chronic pain (principal); M25.511 Pain in right shoulder | CPT/HCPCS: 97165 ==